=== PATIENT | male | born 1985 | race Caucasian/White ===

== ENCOUNTER 2017-01-05 13:24 | Inpatient (IN) | payer OTHER ==
[2017-01-05] VITALS (9 sets, daily range): BP systolic 92–147; BP diastolic 53–89; PULSE 98–135; RESP 17–27; TEMP 98.3–99.5; O2SAT 88–99
[~2017-01-05] VITALS: Ht 167.6 cm; Wt 99.4 kg
[2017-01-05] MEDS ORDERED: IOHEXOL 350 MG/ML 10 ML VIAL (for RAD DIAG) IVCONTRAST ONE (13:25)
[2017-01-05] MEDS ORDERED: METF500T PO (13:52)
[2017-01-05] MEDS ORDERED: OMEP20TA PO (13:53)
[2017-01-05] MEDS ORDERED: SODIUM CHLOR 0.9% 1000 ML INJ 1,000 ML IV SCH ×2 (13:54→14:43)
--- NOTE | 2017-01-05 13:59 | PD ---
HPI Chief Complaint: Respiratory Distress Time Seen by Provider: 13:50 Travel History International Travel<30 days: No Contact w/Intl Traveler<30days: No Traveled to known affect area: No History of Present Illness HPI This a 31-year-old male smoker who traveled here 1.5 months ago from [place] by plane. He presents via EMS for evaluation. For the past 2 days he has had dyspnea, pain in the right upper back and mid chest, generalized myalgias. The pain in his back and chest are sharp and worse with deep inspiration, no alleviating factors. He does report cough with brown sputum production as well as some numbness in the left thigh area and he also endorses some nausea and one episode of emesis yesterday, 1 today as well as 4 episodes of watery stool yesterday. Denies abdominal pain, dysuria, lower extremity edema. He has a history of diabetes, he has been out of his metformin for 1 week. He has no other complaints at this time. PFSH Past Medical History Diabetes: Yes Social History Tobacco Use: Yes Allergies-Medications (Allergen,Severity, Reaction): Coded Allergies: cephalexin (Verified Allergy, Unknown, 01/05/17) Reported Meds & Prescriptions Reported Meds & Active Scripts Active Reported Omeprazole 20 Mg Tab 20 Mg PO DAILY Metformin (Metformin HCl) 500 Mg Tab 500 Mg PO BIDPC Review of Systems Except as stated in HPI: all other systems reviewed are Neg Physical Exam Narrative GENERAL: Well-developed well-nourished male who appears tachypneic on initial examination. He is tachycardic with a heart rate of 130. SKIN: Warm and dry. HEAD: Atraumatic. Normocephalic. EYES: Pupils equal and round. No scleral icterus. No injection or drainage. ENT: No nasal bleeding or discharge. Mucous membranes pink and moist. NECK: Trachea midline. No JVD. CARDIOVASCULAR: Regular rate and rhythm. No murmur appreciated. RESPIRATORY: No accessory muscle use. Slightly diminished breath sounds, mild crackles at the bases. No wheezing. GASTROINTESTINAL: Abdomen soft, non-tender, nondistended. Hepatic and splenic margins not palpable. MUSCULOSKELETAL: No obvious deformities. There is no lower extremity edema or obvious weakness. He has 2+ dorsalis pedis pulse bilaterally. NEUROLOGICAL: Awake and alert. No obvious cranial nerve deficits. Motor grossly within normal limits. Normal speech. PSYCHIATRIC: Appropriate mood and affect; insight and judgment normal. Data Data Last Documented VS Vital Signs Date Time Temp Pulse Resp B/P (MAP) Pulse Ox O2 Delivery O2 Flow Rate FiO2 01/05/17 14:07 94 Nasal Cannula 2.00 01/05/17 13:55 129 25 01/05/17 13:37 98.3 Orders Orders Complete Blood Count With Diff (01/05/17 13:54) Comprehensive Metabolic Panel (01/05/17 13:54) Act Partial Throm Time (Ptt) (01/05/17 13:54) Prothrombin Time / Inr (Pt) (01/05/17 13:54) Magnesium (Mg) (01/05/17 13:54) Ckmb (Isoenzyme) Profile (01/05/17 13:54) Troponin I (01/05/17 13:54) Influenzae A/B Antigen (01/05/17 13:54) Iv Access Insert/Monitor (01/05/17 13:54) Electrocardiogram (01/05/17 13:54) Ecg Monitoring (01/05/17 13:54) Oximetry (01/05/17 13:54) Oxygen Administration (01/05/17 13:54) Chest, Single Ap (01/05/17 13:54) Ct Pulmonary Angiogram (01/05/17 13:54) Sodium Chlor 0.9% 1000 Ml Inj (Ns 1000 M (01/05/17 13:54) Ondansetron Inj (Zofran Inj) (01/05/17 14:00) B-Type Natriuretic Peptide (01/05/17 14:38) Lactic Acid Sepsis Protocol (01/05/17 14:39) Blood Culture (01/05/17 14:39) Vancomycin Inj (Vancomycin Inj) (01/05/17 14:45) Piperacil-Tazo 4.5 Gm Premix (Zosyn 4.5 (01/05/17 14:45) Sodium Chlor 0.9% 1000 Ml Inj (Ns 1000 M (01/05/17 14:43) Acetaminophen (Tylenol) (01/05/17 15:30) CKMB (01/05/17 14:00) CKMB% (01/05/17 14:00) Iohexol 350 Inj (Omnipaque 350 Inj) (01/05/17 13:25) Ur Drug Screen W/Confirmation (01/05/17 16:51) Admit Order (Ed Use Only) (01/05/17 16:59) Labs Laboratory Tests Test 01/05/17 14:00 01/05/17 14:55 White Blood Count 9.6 TH/MM3 Red Blood Count 5.73 MIL/MM3 Hemoglobin 16.8 GM/DL Hematocrit 47.6 % Mean Corpuscular Volume 83.1 FL Mean Corpuscular Hemoglobin 29.4 PG Mean Corpuscular Hemoglobin Concent 35.3 % Red Cell Distribution Width 14.1 % Platelet Count 202 TH/MM3 Mean Platelet Volume 9.7 FL Neutrophils (%) (Auto) 88.8 % Lymphocytes (%) (Auto) 4.1 % Monocytes (%) (Auto) 6.9 % Eosinophils (%) (Auto) 0.0 % Basophils (%) (Auto) 0.2 % Neutrophils # (Auto) 8.5 TH/MM3 Lymphocytes # (Auto) 0.4 TH/MM3 Monocytes # (Auto) 0.7 TH/MM3 Eosinophils # (Auto) 0.0 TH/MM3 Basophils # (Auto) 0.0 TH/MM3 CBC Comment DIFF FINAL Differential Comment Prothrombin Time 12.0 SEC Prothromb Time International Ratio 1.1 RATIO Activated Partial Thromboplast Time 28.2 SEC Blood Urea Nitrogen 16 MG/DL Creatinine 1.60 MG/DL Random Glucose 125 MG/DL Total Protein 7.5 GM/DL Albumin 3.6 GM/DL Calcium Level 8.4 MG/DL Magnesium Level 1.7 MG/DL Alkaline Phosphatase 67 U/L Aspartate Amino Transf (AST/SGOT) 65 U/L Alanine Aminotransferase (ALT/SGPT) 108 U/L Total Bilirubin 1.0 MG/DL Sodium Level 132 MEQ/L Potassium Level 4.1 MEQ/L Chloride Level 101 MEQ/L Carbon Dioxide Level 19.2 MEQ/L Anion Gap 12 MEQ/L Estimat Glomerular Filtration Rate 50 ML/MIN Total Creatine Kinase 1071 U/L Creatine Kinase MB 25.8 NG/ML Creatine Kinase MB % 2.4 % Troponin I 0.18 NG/ML Lactic Acid Level 2.5 mmol/L B-Type Natriuretic Peptide 47 PG/ML MDM Medical Decision Making Medical Screen Exam Complete: Yes Emergency Medical Condition: Yes Medical Record Reviewed: Yes Interpretation(s) CBC reveals WBC count 9.6, 88.8% neutrophils CMP reveals a sodium of 132, creatinine 1.6, AST 65, ALT 108, calcium 8.4 CTPA CONCLUSION: 1. Diffuse, fluffy alveolar infiltrates most prominent in the lower lobes but there is involvement of the upper lobes as well with relative sparing of the apices. Diagnostic considerations include an unusual, diffuse pneumonic infiltrate versus pneumonitis. No associated effusions. 2. No pulmonary embolus. Differential Diagnosis Pulmonary embolism, septic emboli, pneumonia, asthma exacerbation, spontaneous pneumothorax, pericarditis, myocarditis, influenza Narrative Course The patient will be placed on ECG monitoring and pulse oximetry. Twelve-lead EKG will be obtained. Plan is for basic lab work, chest x-ray, CT pulmonary angiogram. Chest x-ray reveals CONCLUSION: 1. Diffuse patchy bilateral PICA opacities, most prominent in the right upper lung zone. Differential considerations include atypical pulmonary edema versus interstitial pneumonia versus atypical infection. I discussed greater detail with the patient who endorses a history of heroin abuse and he recently relapsed, most recently used yesterday. Denies any known history of multiple diseases. Lactic acid and blood cultures been added on. Additional IV fluids as well as vancomycin, Zosyn have been added on. At this point in time the plan is to admit this patient for further evaluation and treatment of pneumonia. Sepsis Criteria SIRS Criteria (2 or more): Heart rate over 90, RR > 20 or PaCO2 < 32 Sepsis Criteria (SIRS+source): Infect source susp/known Criteria Outcome: Meets sepsis criteria Diagnosis Primary Impression: Pneumonia Qualified Codes: J18.9 - Pneumonia, unspecified organism Additional Impressions: Sepsis Qualified Codes: A41.9 - Sepsis, unspecified organism Elevated troponin Admitting Information Admitting Physician Requests: Admit Gerald Tan Jan 05, 2017 13:59
[2017-01-05] MEDS ORDERED: ONDANSETRON HCL 4 MG/2 ML VIAL IV PUSH ONE (14:00)
--- NOTE | 2017-01-05 14:34 | RADRPT ---
EXAM DATE/TIME: 01/05/2017 14:06 [facility] COMPARISON: No previous studies available for comparison. INDICATIONS : Shortness of breath. MEDICAL HISTORY : None. SURGICAL HISTORY : None. ENCOUNTER: Initial ACUITY: 2 days PAIN SCORE: 10/10 LOCATION: Bilateral posterior chest FINDINGS: Patchy diffuse bilateral parenchymal opacities, most prominently in the right upper lung zone. Cardio mediastinal contours are within normal limits. Bony thorax is intact. CONCLUSION: 1. Diffuse patchy bilateral PICA opacities, most prominent in the right upper lung zone. Differential considerations include atypical pulmonary edema versus interstitial pneumonia versus atypical infect ion. Mook Bell MD on January 05, 2017 at 14:30 Board Certified Radiologist. This report was verified electronically.
[2017-01-05] MEDS ORDERED: VANCOMYCIN INJ 1,000 MG in SODIUM CHLOR 0.9% 250 ML INJ 250 ML IV ONE (14:45)
[2017-01-05] MEDS ORDERED: PIPERACIL-TAZO 4.5 GM PREMIX 100 ML IV ONE (14:45)
[2017-01-05 14:57] LABS: AUTOMATED NEUTROPHIL # 8.5 TH/MM3 (1.8-7.7); BASOPHIL % 0.2 % (0.0-2.0); HEMATOCRIT 47.6 % (39.0-51.0); HEMO FLAGS DIFF FINAL; LYMPH % 4.1 % (9.0-44.0); LYMPHOCYTE # 0.4 TH/MM3 (1.0-4.8); MEAN CELL VOLUME 83.1 FL (80.0-100.0); MEAN CORPUSCULAR HEMOGLOBIN 29.4 PG (27.0-34.0); MEAN CORPUSCULAR HGB CONC 35.3 % (32.0-36.0); MONO % 6.9 % (0.0-8.0); NEUT % 88.8 % (16.0-70.0); PLATELET COUNT 202 TH/MM3 (150-450); RED BLOOD COUNT 5.73 MIL/MM3 (4.50-5.90); RED CELL DISTRIBUTION WIDTH 14.1 % (11.6-17.2); WHITE BLOOD COUNT 9.6 TH/MM3 (4.0-11.0)
[2017-01-05 15:20] LABS: APTT (PATIENT) 28.2 SEC (24.3-30.1); INTERNATIONAL NORMALIZED RATIO 1.1 RATIO
[2017-01-05 15:21] LABS: ALT (GPT) 108 U/L (12-78); ANION GAP 12 MEQ/L (5-15); AST (GOT) 65 U/L (15-37); BICARBONATE 19.2 MEQ/L (21.0-32.0); BLOOD UREA NITROGEN 16 MG/DL (7-18); CHLORIDE 101 MEQ/L (98-107); GLOMERULAR FILTRATION RATE 50 ML/MIN (>89); MAGNESIUM 1.7 MG/DL (1.5-2.5); POTASSIUM 4.1 MEQ/L (3.5-5.1); SODIUM (NA) 132 MEQ/L (136-145)
[2017-01-05] MEDS ORDERED: ACETAMINOPHEN 500 MG CPLT PO ONE (15:30)
[2017-01-05 15:35] LABS: ALKALINE PHOSPHATASE 67 U/L (45-117); CREATINE KINASE 1071 U/L (39-308)
[2017-01-05 15:48] LABS: CKMB 25.8 NG/ML (0.5-3.6)
--- NOTE | 2017-01-05 16:25 | RADRPT ---
EXAM DATE/TIME: 01/05/2017 15:47 This report includes an Addendum and supersedes previous reports for this exam. [facility] COMPARISON: No previous studies available for comparison. INDICATIONS : SOB with productive cough with upper back pain with headache and nausea IV CONTRAST: 74 cc Omnipaque 350 (iohexol) IV RADIATION DOSE: 23.08 CTDIvol (mGy) MEDICAL HISTORY : Diabetes mellitus type 2. SURGICAL HISTORY : Non-responsive. ENCOUNTER: Initial ACUITY: 1 day PAIN SCALE: 7/10 LOCATION: chest TECHNIQUE: Volumetric scanning of the chest was performed using a pulmonary embolism protocol MIP images were re constructed. Using automated exposure control and adjustment of the mA and/or kV according to patien t size, radiation dose was kept as low as reasonably achievable to obtain optimal diagnostic quality images. DICOM format image data is available electronically for review and comparison. Follow-up recommendations for detected pulmonary nodules are based at a minimum on nodule size and pa tient risk factors according to Fleischner Society Guidelines. FINDINGS: PULMONARY ARTERIES: No filling defects are seen in the pulmonary arteries through the segmental level. LUNGS: Fluffy alveolar infiltrates are seen in both lungs, most severe in lower lobes with relative sparing of the apices. PLEURAE: There is no pleural thickening or pleural effusion. MEDIASTINUM: There is good visualization of the great vessels of the middle mediastinum. No evidence of mediastin al or hilar adenopathy/mass. MUSCULOSKELETAL: Within normal limits for patient age. MISCELLANEOUS: The visualized upper abdominal organs demonstrate no acute abnormality. CONCLUSION: 1. Diffuse, fluffy alveolar infiltrates most prominent in the lower lobes but there is involvement of the upper lobes as well with relative sparing of the apices. Diagnostic considerations include an un usual, diffuse pneumonic infiltrate versus pneumonitis. No associated effusions. 2. No pulmonary embolus. Thomas Perez MD on January 05, 2017 at 16:15 Board Certified Radiologist. This report was verified electronically. ADDENDUM: The central lobar distribution of the infiltrate may also represent entities such as pulmonary hemorr puja secondary to vasculitis Thomas Perez MD on January 05, 2017 at 17:52 Board Certified Radiologist. This report was verified electronically.
--- NOTE | 2017-01-05 17:04 | PD ---
Physical Exam Date Seen by Provider: Jan 05, 2017 Time Seen by Provider: 15:00 Narrative I, Dr. Brewster, have reviewed the advance practice practitioner's documentation and am in agreement, met with the patient face to face, made the diagnosis, and the medical decision making was done by me. *My assessment and Findings: Patient seen and evaluated with PA, please see PA note for further details. He is here for pleuritic chest pains and shortness of breath, and on evaluation, is quite tachycardic. Initial chest x-ray shows bilateral infiltrates concerning for either CHF or bilateral pneumonia. CTA was done to rule out PE and did not show any signs of PE. Lab work shows significant lactate elevation, there is concern for underlying sepsis. IV antibiotics were initiated after cultures were drawn. Patient admits to illicit drug use and there is also concern for underlying atypical pneumonia such as once related to endocarditis. HIV status is also unknown. His troponin is mildly elevated as well. Patient has multiple issues that will need to be evaluated further. Case was discussed with [facility] resident [facility] for admission. EKG shows sinus tachycardia at a rate of 126 bpm with no signs of acute ST-T changes. Laboratory Tests Test 01/05/17 14:00 01/05/17 14:55 Neutrophils (%) (Auto) 88.8 % (16.0-70.0) Lymphocytes (%) (Auto) 4.1 % (9.0-44.0) Neutrophils # (Auto) 8.5 TH/MM3 (1.8-7.7) Lymphocytes # (Auto) 0.4 TH/MM3 (1.0-4.8) Prothrombin Time 12.0 SEC (9.8-11.6) Creatinine 1.60 MG/DL (0.60-1.30) Random Glucose 125 MG/DL (74-106) Calcium Level 8.4 MG/DL (8.5-10.1) Aspartate Amino Transf (AST/SGOT) 65 U/L (15-37) Alanine Aminotransferase (ALT/SGPT) 108 U/L (12-78) Sodium Level 132 MEQ/L (136-145) Carbon Dioxide Level 19.2 MEQ/L (21.0-32.0) Estimat Glomerular Filtration Rate 50 ML/MIN (>89) Total Creatine Kinase 1071 U/L (39-308) Creatine Kinase MB 25.8 NG/ML (0.5-3.6) Troponin I 0.18 NG/ML (0.02-0.05) Lactic Acid Level 2.5 mmol/L (0.4-2.0) Last 24 hours Impressions Chest X-Ray 01/05/17 [id number] Signed Impressions: Service Date/Time: Thursday, January 05, 2017 14:06 - CONCLUSION: 1. Diffuse patchy bilateral PICA opacities, most prominent in the right upper lung zone. Differential considerations include atypical pulmonary edema versus interstitial pneumonia versus atypical infection. Mook Bell MD CT Angiography 01/05/[id number] Signed Impressions: Service Date/Time: Thursday, January 05, 2017 15:47 - CONCLUSION: 1. Diffuse , fluffy alveolar infiltrates most prominent in the lower lobes but there is involvement of the upper lobes as well with relative sparing of the apices. Diagnostic considerations include an unusual, diffuse pneumonic infiltrate versus pneumonitis. No associated effusions. 2. No pulmonary embolus. Thomas Perez MD Data Data Last Documented VS Vital Signs Date Time Temp Pulse Resp B/P (MAP) Pulse Ox O2 Delivery O2 Flow Rate FiO2 01/05/17 14:07 94 Nasal Cannula 2.00 01/05/17 13:55 129 25 01/05/17 13:37 98.3 Orders Orders Complete Blood Count With Diff (01/05/17 13:54) Comprehensive Metabolic Panel (01/05/17 13:54) Act Partial Throm Time (Ptt) (01/05/17 13:54) Prothrombin Time / Inr (Pt) (01/05/17 13:54) Magnesium (Mg) (01/05/17 13:54) Ckmb (Isoenzyme) Profile (01/05/17 13:54) Troponin I (01/05/17 13:54) Influenzae A/B Antigen (01/05/17 13:54) Iv Access Insert/Monitor (01/05/17 13:54) Electrocardiogram (01/05/17 13:54) Ecg Monitoring (01/05/17 13:54) Oximetry (01/05/17 13:54) Oxygen Administration (01/05/17 13:54) Chest, Single Ap (01/05/17 13:54) Ct Pulmonary Angiogram (01/05/17 13:54) Sodium Chlor 0.9% 1000 Ml Inj (Ns 1000 M (01/05/17 13:54) Ondansetron Inj (Zofran Inj) (01/05/17 14:00) B-Type Natriuretic Peptide (01/05/17 14:38) Lactic Acid Sepsis Protocol (01/05/17 14:39) Blood Culture (01/05/17 14:39) Vancomycin Inj (Vancomycin Inj) (01/05/17 14:45) Piperacil-Tazo 4.5 Gm Premix (Zosyn 4.5 (01/05/17 14:45) Sodium Chlor 0.9% 1000 Ml Inj (Ns 1000 M (01/05/17 14:43) Acetaminophen (Tylenol) (01/05/17 15:30) CKMB (01/05/17 14:00) CKMB% (01/05/17 14:00) Iohexol 350 Inj (Omnipaque 350 Inj) (01/05/17 13:25) Ur Drug Screen W/Confirmation (01/05/17 16:51) Admit Order (Ed Use Only) (01/05/17 16:59) Labs Laboratory Tests Test 01/05/17 14:00 01/05/17 14:55 White Blood Count 9.6 TH/MM3 Red Blood Count 5.73 MIL/MM3 Hemoglobin 16.8 GM/DL Hematocrit 47.6 % Mean Corpuscular Volume 83.1 FL Mean Corpuscular Hemoglobin 29.4 PG Mean Corpuscular Hemoglobin Concent 35.3 % Red Cell Distribution Width 14.1 % Platelet Count 202 TH/MM3 Mean Platelet Volume 9.7 FL Neutrophils (%) (Auto) 88.8 % Lymphocytes (%) (Auto) 4.1 % Monocytes (%) (Auto) 6.9 % Eosinophils (%) (Auto) 0.0 % Basophils (%) (Auto) 0.2 % Neutrophils # (Auto) 8.5 TH/MM3 Lymphocytes # (Auto) 0.4 TH/MM3 Monocytes # (Auto) 0.7 TH/MM3 Eosinophils # (Auto) 0.0 TH/MM3 Basophils # (Auto) 0.0 TH/MM3 CBC Comment DIFF FINAL Differential Comment Prothrombin Time 12.0 SEC Prothromb Time International Ratio 1.1 RATIO Activated Partial Thromboplast Time 28.2 SEC Blood Urea Nitrogen 16 MG/DL Creatinine 1.60 MG/DL Random Glucose 125 MG/DL Total Protein 7.5 GM/DL Albumin 3.6 GM/DL Calcium Level 8.4 MG/DL Magnesium Level 1.7 MG/DL Alkaline Phosphatase 67 U/L Aspartate Amino Transf (AST/SGOT) 65 U/L Alanine Aminotransferase (ALT/SGPT) 108 U/L Total Bilirubin 1.0 MG/DL Sodium Level 132 MEQ/L Potassium Level 4.1 MEQ/L Chloride Level 101 MEQ/L Carbon Dioxide Level 19.2 MEQ/L Anion Gap 12 MEQ/L Estimat Glomerular Filtration Rate 50 ML/MIN Total Creatine Kinase 1071 U/L Creatine Kinase MB 25.8 NG/ML Creatine Kinase MB % 2.4 % Troponin I 0.18 NG/ML Lactic Acid Level 2.5 mmol/L B-Type Natriuretic Peptide 47 PG/ML [facility] Medical Record Reviewed: Yes Supervised Visit with SHIMON: Yes Diagnosis Primary Impression: Pneumonia Qualified Codes: J18.9 - Pneumonia, unspecified organism Additional Impression: Sepsis Qualified Codes: A41.9 - Sepsis, unspecified organism Admitting Information Admitting Physician Requests: it Steven Brewster MD Jan 05, 2017 17:04
[2017-01-05 17:07] LABS: LACTIC ACID GHOST NOT REPORTABLE
[2017-01-05] MEDS ORDERED: SODIUM CHLORIDE 0.9% FLUSH 10 ML FLUSH IV FLUSH PRN ×4 (17:15→21:30)
--- NOTE | 2017-01-05 17:17 | HHI.HP ---
HPI Service Family Medicine Primary Care Physician No Primary Care Physician Admission Diagnosis sepsis/bilateral pneumonia/elevated troponin Diagnoses: International Travel<30 Days: No Contact w/Intl Traveler<30days: No Known Affected Area: No History of Present Illness Mr. Jones is a 31-year-old male, who presents with right-sided chest pain, shortness of breath, and productive sputum 3 days. Vernon reports gradual onset of right sided chest wall pain over the past several days. The pain is described as a sharp, stabbing pain, that is a 10 out of 10, and radiates to his lower back. Taking a deep breath makes his pain worse. He also reports that over the past 2-3 days he has been having night sweats, fevers, and chills. In addition to the symptoms, he also reports a productive sputum, that is brown colored. He brings up several tablespoons daily. He denies any blood in the sputum. He denies a history of blood clots. He denies currently having any left-sided, or central chest pain. He denies any radiation of the pain into his left arm, jaw, or chest pain associated with exertion. The patient does admit to remodeling a house recently, and has not been able to wear his mask because the mask fogs his glasses. He does not know if he was exposed to anybody with tuberculosis, denies being in a long term/ present/was [facility]. He denies inhaling any foreign drugs, except for marijuana several days ago. To note, he also injected IV cocaine 8 days ago. Review of systems: He also reports left knee numbness, and inability to bear weight on this leg that is new over the past 24 hours. Headaches, frontal temporal, worse with coughing. Nausea + Review of Systems Constitutional: COMPLAINS OF: Fatigue, Fever, Chills Eyes: DENIES: Blurred vision, Diplopia Respiratory: COMPLAINS OF: Cough, Sputum production, Shortness of breath Cardiovascular: COMPLAINS OF: Chest pain, DENIES: Palpitations Gastrointestinal: COMPLAINS OF: Nausea, DENIES: Abdominal pain, Black stools, Bloody stools, Constipation, Diarrhea Musculoskeletal: DENIES: Joint pain Neurologic: COMPLAINS OF: Abnormal gait, Localized weakness, Paresthesias Past Family Social History Past Medical History Diabetes mellitus, on metformin Obesity IV drug abuse Past Surgical History Right knee repair, left flexor tendons in his forearm were repaired, tonsillectomy Allergies: Coded Allergies: cephalexin (Verified Allergy, Unknown, 01/05/17) Family History Mother 50s, healthy Father also healthy Brother healthy 2 children healthy Social History Moved from [place] to help a friend remodel house Smokes a pack per day since the age of 13 Denies any recent alcohol abuse IV cocaine abuse, last use a days ago. +Marijuana Physical Exam Vital Signs Vital Signs Date Time Temp Pulse Resp B/P (MAP) Pulse Ox O2 Delivery O2 Flow Rate FiO2 01/05/17 14:07 94 Nasal Cannula 2.00 01/05/17 14:07 94 Nasal Cannula 2.00 01/05/17 13:55 129 25 93 Nasal Cannula 2.00 01/05/17 13:47 130 25 140/87 (104) 91 01/05/17 13:37 98.3 135 18 131/81 (98) 88 Room Air Physical Exam Gen.: Profusely diaphoretic, alert and oriented 3, speaking in full sentences, appears uncomfortable HEENT: Pinpoint pupils, left pupil deviated medially, pupils are equal round and reactive to light, cranial nerves intact, throat non-erythematous, neck soft / supple CV: RRR, tachycardic, no obvious murmurs, pulses faint to extremities RESP: Right lobes diminished, faint crackles throughout, not using accessory muscles. Left bases, minimal crackles. No deviation of trachea. EXT: Negative Craven sign, calfs equal in diameter, non tender NEURO: AAO x 3; CN intact, left pupil deviated midline from , full strength throughout, Reflexes diminished to left patellar, numbness to light palpation over left anterior thigh and rosa. Laboratory Laboratory Tests Test 01/05/17 14:00 01/05/17 14:55 White Blood Count 9.6 Red Blood Count 5.73 Hemoglobin 16.8 Hematocrit 47.6 Mean Corpuscular Volume 83.1 Mean Corpuscular Hemoglobin 29.4 Mean Corpuscular Hemoglobin Concent 35.3 Red Cell Distribution Width 14.1 Platelet Count 202 Mean Platelet Volume 9.7 Neutrophils (%) (Auto) 88.8 Lymphocytes (%) (Auto) 4.1 Monocytes (%) (Auto) 6.9 Eosinophils (%) (Auto) 0.0 Basophils (%) (Auto) 0.2 Neutrophils # (Auto) 8.5 Lymphocytes # (Auto) 0.4 Monocytes # (Auto) 0.7 Eosinophils # (Auto) 0.0 Basophils # (Auto) 0.0 CBC Comment DIFF FINAL Differential Comment Prothrombin Time 12.0 Prothromb Time International Ratio 1.1 Activated Partial Thromboplast Time 28.2 Blood Urea Nitrogen 16 Creatinine 1.60 Random Glucose 125 Total Protein 7.5 Albumin 3.6 Calcium Level 8.4 Magnesium Level 1.7 Alkaline Phosphatase 67 Aspartate Amino Transf (AST/SGOT) 65 Alanine Aminotransferase (ALT/SGPT) 108 Total Bilirubin 1.0 Sodium Level 132 Potassium Level 4.1 Chloride Level 101 Carbon Dioxide Level 19.2 Anion Gap 12 Estimat Glomerular Filtration Rate 50 Total Creatine Kinase 1071 Creatine Kinase MB 25.8 Creatine Kinase MB % 2.4 Troponin I 0.18 Lactic Acid Level 2.5 B-Type Natriuretic Peptide 47 Date/Time Source Procedure Growth Status 01/05/17 14:55 Blood Peripheral Aerobic Blood Culture Pending Received 01/05/17 14:55 Blood Peripheral Anaerobic Blood Culture Pending Received 01/05/17 14:00 Nasal Aspirate Influenza Types A,B Antigen (LEAH) - Final NEGATIVE FOR FLU A AND B ANTIGEN.... Complete Result Diagram: 01/05/17 1400 01/05/17 1400 Imaging Last 72 hours Impressions Chest X-Ray 01/05/17 1352 Signed Impressions: Service Date/Time: Thursday, January 05, 2017 14:06 - CONCLUSION: 1. Diffuse patchy bilateral PICA opacities, most prominent in the right upper lung zone. Differential considerations include atypical pulmonary edema versus interstitial pneumonia versus atypical infection. Mook Bell MD CT Angiography 01/05/17 4012 Signed Impressions: Service Date/Time: Thursday, January 05, 2017 15:47 - CONCLUSION: 1. Diffuse , fluffy alveolar infiltrates most prominent in the lower lobes but there is involvement of the upper lobes as well with relative sparing of the apices. Diagnostic considerations include an unusual, diffuse pneumonic infiltrate versus pneumonitis. No associated effusions. 2. No pulmonary embolus. Thomas Perez MD ADDENDUM: The central lobar distribution of the infiltrate may also represent entities such as pulmonary hemorrhage secondary to vasculitis Thomas Perez MD Septic Shock Reassessment Heart: Regular rate and rhythm Lungs: Course, Crackles, Diminished Skin: Cold, Moist Peripheral Pulses: Weak Right Radial Weak Left Radial Capillary Refill: Sluggish, <2 seconds Caprini VTE Risk Assessment Caprini VTE Risk Assessment: Mod/High Risk (score >= 2) Caprini Risk Assessment Model Point Value = 1 Point Value = 2 Point Value = 3 Point Value = 5 Age 41-60 Minor surgery BMI > 25 kg/m2 Swollen legs Varicose veins or History of unexplained or recurrent spontaneous Oral contraceptives or hormone replacement Sepsis (< 1 month) Serious lung disease, including pneumonia (< 1 month) Abnormal pulmonary function Acute myocardial infarction Congestive heart failure (< 1 month) History of inflammatory bowel disease Medical patient at bed rest Age 61-74 Arthroscopic surgery Major open surgery (> 45 min) Laparoscopic surgery (> 45 min) Malignancy Confined to bed (> 72 hours) Immobilizing plaster cast Central venous access Age >= 75 History of VTE Family history of VTE Factor V Leiden Prothrombin [id number] Lupus anticoagulant Anticardiolipin antibodies Elevated serum homocysteine Heparin-induced thrombocytopenia Other congenital or acquired thrombophilia Stroke (< 1 month) Elective arthroplasty Hip, pelvis, or leg fracture Acute spinal cord injury (< 1 month) Prophylaxis Regimen Total Risk Factor Score Risk Level Prophylaxis Regimen 0-1 Low Early ambulation 2 Moderate Order ONE of the following: *Sequential Compression Device (SCD) *Heparin 5000 units SQ BID 3-4 Higher Order ONE of the following medications: *Heparin 5000 units SQ TID *Enoxaparin/Lovenox 40 mg SQ daily (WT < 150 kg, CrCl > 30 mL/min) *Enoxaparin/Lovenox 30 mg SQ daily (WT < 150 kg, CrCl > 10-29 mL/min) *Enoxaparin/Lovenox 30 mg SQ BID (WT < 150 kg, CrCl > 30 mL/min) AND/OR *Sequential Compression Device (SCD) 5 or more Highest Order ONE of the following medications: *Heparin 5000 units SQ TID (Preferred with Epidurals) *Enoxaparin/Lovenox 40 mg SQ daily (WT < 150 kg, CrCl > 30 mL/min) *Enoxaparin/Lovenox 30 mg SQ daily (WT < 150 kg, CrCl > 10-29 mL/min) *Enoxaparin/Lovenox 30 mg SQ BID (WT < 150 kg, CrCl > 30 mL/min) AND *Sequential Compression Device (SCD) Assessment and Plan Assessment and Plan Mr. Jones is a 31-year-old male, with past medical history of diabetes, presenting with worsening shortness of breath and right-sided chest pain. CTA of chest showed diffuse fluffy alveolar infiltrates most prominent at the lower lobes. He is meeting sepsis criteria on admission. He will be admitted to the intensive care unit. Code Status Full code. Discussed Condition With Seen and discussed with Dr. Selena Moffett Problem List: (1) Sepsis ICD Codes: A41.9 - Sepsis, unspecified organism Status: Acute Plan: Severe sepsis. Heart rate 135, RR 25, lactic acid 2.5. Decreasing BP from 137/89 to 92/53 since admission. Source: Possible bacteremia, endocarditis, atypical pneumonia, pneumonitis. Clinical picture consistent with Legionella: patchy lobar infiltrates, hyponatremia, hepatic dysfunction, headaches, and diarrhea. Plan: -Status post 2 L bolus in ED, continue fluids at 1.5 maintenance NS, may need central line and pressors if continuing to have hypotension. -Broad-spectrum antibiotics: Vancomycin 1 g every 12, Zosyn 4.5 g every 6, azithromycin 500 mg by mouth -Blood cultures 2 -Trend lactic acid -Consult infectious disease. We appreciate their expertise. (2) Elevated troponin ICD Codes: R74.8 - Abnormal levels of other serum enzymes Status: Acute Plan: Troponin on admission was 0.18 --> 0.30. Increasing. EKG showed normal sinus rhythm on admission, with no ST segment elevations or depressions. No Q waves. And no T-wave inversions. Suspect demand ischemia from underlying sepsis. If Troponin continue to increase, or there are signs of ischemia on EKG, will consult cardiology and treat for ACS. (3) Pneumonia ICD Codes: J18.9 - Pneumonia, unspecified organism Status: Acute Plan: CTA showed diffuse fluffy alveolar infiltrates most prominent in the lower lobes but there is involvement of the upper lobes as well with relative sparing of the apices. Diagnostic considerations include an unusual type use pneumonic infiltrate versus pneumonitis. No associated effusions. No pulmonary embolism noted on CTA. An addendum to the CT angiography showed: "The central lobar distribution of the infiltrate may also represent entity such as pulmonary hemorrhage secondary to vasculitis." -ABX as above -Supportive therapy with supplemental oxygen O2 sats > 90% -Duonebs Q6 hours scheduled -Urine legionella and pneumococcal Ag PCRs. -Consult pulmonology given the possibility of an alveolar hemorrhage as noted on CT. (4) Lactic acidosis ICD Codes: E87.2 - Acidosis Plan: Lactic acid decreased from 2.5 --> 2.2. Continue to trend per sepsis protocol. (5) Leg numbness ICD Codes: R20.0 - Anesthesia of skin Plan: May be central in origin given headaches worse with Valsalva and possible embolic source. Get CT scan head when stable. (6) IVDU (intravenous drug user) ICD Codes: F19.90 - Other psychoactive substance use, unspecified, uncomplicated Plan: CIWA protocol. Work up for endocarditis as above. 2D-ECHO. Blood cultures x 2. HIV and Hepatitis profile. Sputum for AFB. (7) Nutrition, metabolism, and development symptoms ICD Codes: R63.8 - Other symptoms and signs concerning food and fluid intake Plan: Nutrition: reg diet IVF: above DVT ppx: 30 lovenox daily GI ppx: [address] Selena Mfofett WDW Dr. Miranda Perez and Dr. Jerrica Purcell Physician Certification 2 Midnight Certification Type: Admission for Inpatient Services Order for Inpatient Services The services are ordered in accordance with Medicare regulations or non- Medicare payer requirements, as applicable. In the case of services not specified as inpatient-only, they are appropriately provided as inpatient services in accordance with the 2-midnight benchmark. Estimated LOS (days): 2 2 days is the estimated time the patient will need to remain in the hospital, assuming treatment plan goals are met and no additional complications. Post-Hospital Plan: Home Problem Qualifiers (1) Sepsis: Qualified Codes: A41.9 - Sepsis, unspecified organism (2) Pneumonia: Qualified Codes: J18.9 - Pneumonia, unspecified organism Cameron Ruby MD, R3 Jan 05, 2017 17:17
[2017-01-05] MEDS ORDERED: LACTULOSE SYRUP 20 GM/30 ML CUP PO PRN (17:45)
[2017-01-05] MEDS ORDERED: cloNIDine HCL 0.1 MG TAB PO PRN (17:45)
[2017-01-05] MEDS ORDERED: MAGNESIUM HYDROXIDE SUSP 30 ML CUP PO PRN (17:45)
[2017-01-05] MEDS ORDERED: NALOXONE HCL 0.4 MG/ML AMP IV PUSH PRN (17:45)
[2017-01-05] MEDS ORDERED: ONDANSETRON HCL 4 MG/2 ML VIAL IVP PRN (17:45)
[2017-01-05] MEDS ORDERED: SENNOSIDES 8.6 MG TAB PO PRN (17:45)
[2017-01-05] MEDS ORDERED: BISACODYL 10 MG SUPP RECTAL PRN (17:45)
[2017-01-05] MEDS ORDERED: MORPHINE SULFATE 4 MG/ML INJ IM ONE (18:00)
[2017-01-05] MEDS ORDERED: oxyCODONE/ACETAMINOPHEN 10 MG/325 MG TAB PO PRN (18:15)
[2017-01-05] MEDS ORDERED: MORPHINE SULFATE 2 MG/ML INJ SQ PRN (18:15)
[2017-01-05 18:28] LABS: BACTERIA, URINE OCC /hpf; BLOOD, URINE MOD (NEG); COMMENT (UR) CULT NOT INDICATED; CULTURE IF INDICATED CULT NOT INDICATED; GLUCOSE,URINE NEG (NEG); HYALINE CAST, URINE 4 /lpf (RARE); KETONE, URINE NEG (NEG); NITRITE,URINE NEG (NEG); PH, URINE 5.5 (5.0-8.5); SQUAMOUS EPITHELIAL CELL URINE 1 /hpf (0-5); URINE COLOR YELLOW (YELLW/STRAW)
[2017-01-05] MEDS: MORPHINE SULFATE 2 MG/ML INJ IV PRN (19:12)
[2017-01-05] MEDS ORDERED: ENOXAPARIN SODIUM 30 MG/0.3 ML SYRINGE SQ SCH (20:00)
[2017-01-05] MEDS ORDERED: CHLORHEXIDINE GLUCONATE 2 % 1 PACK (2 CLOTHS)(extra cloths) TOPICAL PRN (20:45)
[2017-01-05] MEDS ORDERED: SODIUM CHLORIDE 0.9% FLUSH 10 ML FLUSH IV FLUSH SCH ×3 (21:00)
[2017-01-05] MEDS: DOCUSATE SODIUM 50 MG/SENNA 8.6 MG TAB PO SCH (21:00)
[2017-01-05] MEDS ORDERED: LORazepam 2 MG/ML VIAL IV PUSH PRN ×4 (21:30)
[2017-01-05] MEDS ORDERED: FLUMAZENIL 0.5 MG/5 ML VIAL IV PUSH PRN (21:30)
[2017-01-05] MEDS ORDERED: LORazepam 2 MG TAB PO PRN (21:30)
[2017-01-05] MEDS ORDERED: LORazepam 1 MG TAB PO PRN (21:30)
[2017-01-05] MEDS: SODIUM CHLOR 0.9% 1000 ML INJ 1,000 ML IV SCH (21:51)
[2017-01-05] MEDS: AZITHROMYCIN 250 MG TAB PO SCH (21:51)
[2017-01-05] MEDS: PIPERACIL-TAZO 4.5 GM PREMIX 100 ML IV SCH (21:53)
[2017-01-05] MEDS: PANTOPRAZOLE SOD 40 MG DELAYED RELEASE TAB PO SCH (21:54)
[2017-01-05] MEDS: RESP: ALBUTEROL 2.5 MG/IPRATROPIUM 0.5 MG NEB (SCH) NEB (22:14)
[2017-01-06] VITALS (12 sets, daily range): BP systolic 101–136; BP diastolic 54–81; PULSE 85–98; RESP 20–30; TEMP 98.7–99.6; O2SAT 93–99
[2017-01-06] MEDS: SODIUM CHLOR 0.9% 1000 ML INJ 1,000 ML IV SCH ×3 (03:17→22:40)
[2017-01-06] MEDS: CHLORHEXIDINE GLUCONATE 2 % 1 PACK (2 CLOTHS)(taper/protocol) TOPICAL SCH (03:18)
[2017-01-06] MEDS: VANCOMYCIN INJ 1,000 MG in SODIUM CHLOR 0.9% 250 ML INJ 250 ML IV SCH ×2 (03:18→15:16)
[2017-01-06] MEDS: RESP: ALBUTEROL 2.5 MG/IPRATROPIUM 0.5 MG NEB (SCH) NEB ×4 (04:21→21:00)
[2017-01-06] MEDS: PIPERACIL-TAZO 4.5 GM PREMIX 100 ML IV SCH ×4 (04:33→22:41)
[2017-01-06] MEDS ORDERED: INFLUENZA VIRUS VACCINE (QUADRIVALENT) 0.5 ML SYR IM ONE (09:00)
[2017-01-06] MEDS ORDERED: PNEUMOCOCCAL POLYVALENT INJ 25 MCG/0.5 ML SYR IM ONE (09:00)
[2017-01-06] MEDS: DOCUSATE SODIUM 50 MG/SENNA 8.6 MG TAB PO SCH ×3 (09:22→20:24)
[2017-01-06] MEDS: PANTOPRAZOLE SOD 40 MG DELAYED RELEASE TAB PO SCH (09:22)
[2017-01-06] MEDS: MORPHINE SULFATE 2 MG/ML INJ IV PRN ×3 (09:22→20:26)
[2017-01-06] MEDS: SODIUM CHLORIDE 0.9% FLUSH 10 ML FLUSH IV FLUSH SCH ×2 (09:23→20:24)
[2017-01-06 09:50] LABS: AUTOMATED NEUTROPHIL # 2.8 TH/MM3 (1.8-7.7); BASOPHIL % 0.1 % (0.0-2.0); EOSINOPHIL % 0.3 % (0.0-4.0); HEMATOCRIT 34.8 % (39.0-51.0); HEMO FLAGS DIFF FINAL; LYMPH % 19.4 % (9.0-44.0); LYMPHOCYTE # 0.8 TH/MM3 (1.0-4.8); MEAN CORPUSCULAR HGB CONC 34.9 % (32.0-36.0); MONO % 10.1 % (0.0-8.0); NEUT % 70.1 % (16.0-70.0); PLATELET COUNT 121 TH/MM3 (150-450); RED BLOOD COUNT 4.19 MIL/MM3 (4.50-5.90); RED CELL DISTRIBUTION WIDTH 14.4 % (11.6-17.2)
[2017-01-06 10:23] LABS: ALKALINE PHOSPHATASE 40 U/L (45-117); ALT (GPT) 76 U/L (12-78); ANION GAP 7 MEQ/L (5-15); AST (GOT) 45 U/L (15-37); BICARBONATE 22.3 MEQ/L (21.0-32.0); BLOOD UREA NITROGEN 9 MG/DL (7-18); CHLORIDE 111 MEQ/L (98-107); GLOMERULAR FILTRATION RATE 94 ML/MIN (>89); POTASSIUM 3.6 MEQ/L (3.5-5.1); SODIUM (NA) 140 MEQ/L (136-145); TOTAL BILIRUBIN ADULT 0.6 MG/DL (0.2-1.0)
[2017-01-06] MEDS: oxyCODONE/ACETAMINOPHEN 7.5 MG/325 MG TAB PO SCH ×3 (11:00→22:41)
--- NOTE | 2017-01-06 11:43 | ECHRPT ---
Indication: endocarditis CONCLUSIONS Normal left ventricular size. Wall thickness is normal. The left ventricular systolic function is normal with an estimated ejection fraction in the range of 55-60%. Structurally normal mitral valve. Mild mitral valve regurgitation. Structurally normal tricuspid valve. There is mild tricuspid valve regurgitation. The estimated pulmonary arterial pressure is 40 mmHg. BP: / HR: Rhythm: MEASUREMENTS (Male / Female) Normal Values Technical Quality:Good 2D ECHO LV Diastolic Diameter PLAX 3.8 cm 4.2 - 5.9 / 3.9 - 5.3 cm LV Systolic Diameter PLAX 3.3 cm IVS Diastolic Thickness 0.9 cm 0.6 - 1.0 / 0.6 - 0.9 cm LVPW Diastolic Thickness 0.9 cm 0.6 - 1.0 / 0.6 - 0.9 cm LV Relative Wall Thickness 0.5 RV Internal Dim ED PLAX 2.8 cm M-MODE Aortic Root Diameter MM 2.8 cm LA Systolic Diameter MM 3.4 cm LA Ao Ratio MM 1.2 AV Cusp Separation MM 2.1 cm DOPPLER Mitral E Point Velocity 61.2 cm/s Mitral A Point Velocity 71.1 cm/s Mitral E to A Ratio 0.9 LV E' Lateral Velocity 18.8 cm/s Mitral E to LV E' Lateral Ratio 3.3 LV E' Septal Velocity 11.6 cm/s Mitral E to LV E' Septal Ratio 5.3 TR Peak Velocity 277.0 cm/s TR Peak Gradient 30.7 mmHg Right Atrial Pressure 10.0 mmHg Pulmonary Artery Systolic Pressu 40.7 mmHg Right Ventricular Systolic Press 40.7 mmHg FINDINGS LEFT VENTRICLE Normal left ventricular size. Wall thickness is normal. The left ventricular systolic function is normal with an estimated ejection fraction in the range of 55-60%. RIGHT VENTRICLE Normal right ventricular size and systolic function. LEFT ATRIUM The left atrial size is normal. RIGHT ATRIUM The right atrial size is normal. ATRIAL SEPTUM Normal atrial septal thickness without atrial level shunting by limited color doppler interrogation. AORTA The aortic root and proximal ascending aorta are normal in size on limited imaging. MITRAL VALVE Structurally normal mitral valve. Mild mitral valve regurgitation. AORTIC VALVE Trileaflet aortic valve. No aortic valve regurgitation. TRICUSPID VALVE Structurally normal tricuspid valve. There is mild tricuspid valve regurgitation. The estimated pulmonary arterial pressure is 40 mmHg. PULMONARY VALVE No pulmonary valve regurgitation or stenosis. VESSELS The inferior vena cava is normal in size. PERICARDIUM No pericardial effusion. Jhoan H. Eva MD (Electronically Signed) Final Date:06 January 2017 11:42
[2017-01-06] MEDS: oxyCODONE/ACETAMINOPHEN 10 MG/325 MG TAB PO PRN (11:53)
--- NOTE | 2017-01-06 13:38 | HHI.FPPN ---
Subjective Remarks Patient seen, examined and discussed with the medicine A team. History and physical examination for this admission was reviewed in detail. This is a 31-year-old male who presented with right sided chest pain associated with shortness of breath and sputum production dark brown sputum for 3 days. He said several days of right sided posterior chest wall pain which is sharp and stabbing, 10 out of 10 and radiates to his low back. He has pain with deep breath, is producing brown sputum of quantity likely several tablespoons per day. No blood seen in the sputum. He has been working remodeling a house and there is a lot of dust involved and he's not been wearing a mask. He denies any exposure to TB. Historically, he is from [place], he has diabetes and obesity, he smokes marijuana occasionally and does use IV cocaine. He is on metformin twice a day , he is a smoker. Surgically he has history of right knee surgery. Additionally, he reports that he arose in his left leg collapsed. He also reports occasional loose stools and headaches. This morning, he feels about the same with pain in his right back posteriorly 10 out of 10. He was able to eat his breakfast but he feels a little nauseated. Still feels feverish. Per his nurse, his vital signs up in stable. Objective Vitals Vital Signs Date Time Temp Pulse Resp B/P (MAP) Pulse Ox O2 Delivery O2 Flow Rate FiO2 01/06/17 10:00 92 01/06/17 08:00 99.3 87 22 110/61 (77) 99 01/06/17 08:00 87 01/06/17 06:00 94 01/06/17 04:00 99.6 92 21 105/68 (80) 99 01/06/17 04:00 96 01/06/17 02:00 86 01/06/17 00:00 96 01/06/17 00:00 99.5 97 21 101/55 (70) 93 01/05/17 22:00 99 01/05/17 20:30 99.5 102 27 107/61 (76) 99 01/05/17 20:09 01/05/17 19:37 98 17 92/53 (66) 99 Room Air 01/05/17 17:30 106 24 147/64 (91) 97 Nasal Cannula 2.00 01/05/17 16:00 110 25 134/83 (100) 96 Nasal Cannula 2.00 01/05/17 14:30 112 24 137/89 (105) 96 Nasal Cannula 2.00 01/05/17 14:07 94 Nasal Cannula 2.00 01/05/17 14:07 94 Nasal Cannula 2.00 01/05/17 13:55 129 25 93 Nasal Cannula 2.00 01/05/17 13:47 130 25 140/87 (104) 91 01/05/17 13:37 98.3 135 18 131/81 (98) 88 Room Air I/O 01/05/17 01/05/17 01/05/17 01/06/17 01/06/17 01/06/17 07:00 15:00 23:00 07:00 15:00 23:00 Intake Total 2350 ml 480 ml Output Total 1150 ml Balance 2350 ml -670 ml Intake Oral 480 ml IV Total 2350 ml Output Urine Total 1150 ml # Bowel Movements 0 Result Diagram: 01/06/1728 01/06/17927 Other Results His lactate is 2.5, pro calcitonin is elevated at 12 as are his AST and ALT. Laboratory Tests Test 01/05/17 14:00 01/05/17 14:55 01/05/17 17:25 01/05/17 18:20 White Blood Count 9.6 TH/MM3 Red Blood Count 5.73 MIL/MM3 Hemoglobin 16.8 GM/DL Hematocrit 47.6 % Mean Corpuscular Volume 83.1 FL Mean Corpuscular Hemoglobin 29.4 PG Mean Corpuscular Hemoglobin Concent 35.3 % Red Cell Distribution Width 14.1 % Platelet Count 202 TH/MM3 Mean Platelet Volume 9.7 FL Neutrophils (%) (Auto) 88.8 % Lymphocytes (%) (Auto) 4.1 % Monocytes (%) (Auto) 6.9 % Eosinophils (%) (Auto) 0.0 % Basophils (%) (Auto) 0.2 % Neutrophils # (Auto) 8.5 TH/MM3 Lymphocytes # (Auto) 0.4 TH/MM3 Monocytes # (Auto) 0.7 TH/MM3 Eosinophils # (Auto) 0.0 TH/MM3 Basophils # (Auto) 0.0 TH/MM3 CBC Comment DIFF FINAL Differential Comment Prothrombin Time 12.0 SEC Prothromb Time International Ratio 1.1 RATIO Activated Partial Thromboplast Time 28.2 SEC Blood Urea Nitrogen 16 MG/DL Creatinine 1.60 MG/DL Random Glucose 125 MG/DL Total Protein 7.5 GM/DL Albumin 3.6 GM/DL Calcium Level 8.4 MG/DL Magnesium Level 1.7 MG/DL Alkaline Phosphatase 67 U/L Aspartate Amino Transf (AST/SGOT) 65 U/L Alanine Aminotransferase (ALT/SGPT) 108 U/L Total Bilirubin 1.0 MG/DL Sodium Level 132 MEQ/L Potassium Level 4.1 MEQ/L Chloride Level 101 MEQ/L Carbon Dioxide Level 19.2 MEQ/L Anion Gap 12 MEQ/L Estimat Glomerular Filtration Rate 50 ML/MIN Total Creatine Kinase 1071 U/L Creatine Kinase MB 25.8 NG/ML Creatine Kinase MB % 2.4 % Troponin I 0.18 NG/ML 0.30 NG/ML Lactic Acid Level 2.5 mmol/L 2.2 mmol/L B-Type Natriuretic Peptide 47 PG/ML Urine Color YELLOW Urine Turbidity CLEAR Urine pH 5.5 Urine Specific [place] 1.043 Urine Protein 30 mg/dL Urine Glucose (UA) NEG mg/dL Urine Ketones NEG mg/dL Urine Occult Blood MOD Urine Nitrite NEG Urine Bilirubin NEG Urine Urobilinogen LESS THAN 2.0 MG/DL Urine Leukocyte Esterase NEG Urine RBC 9 /hpf Urine WBC 7 /hpf Urine Squamous Epithelial Cells 1 /hpf Urine Bacteria OCC /hpf Urine Hyaline Casts 4 /lpf Microscopic Urinalysis Comment CULT NOT INDICATED Test 01/05/17 20:35 01/05/17 22:13 01/05/17 22:30 01/06/17 09:28 Nasal Screen MRSA (PCR) MRSA NOT DETECTED Urine Opiates Screen NEG Urine Barbiturates Screen NEG Urine Amphetamines Screen NEG Urine Benzodiazepines Screen NEG Urine Cocaine Screen POS Urine Cannabinoids Screen NEG Troponin I 0.24 NG/ML 0.16 NG/ML Procalcitonin 12.16 ng/mL White Blood Count 4.0 TH/MM3 Red Blood Count 4.19 MIL/MM3 Hemoglobin 12.1 GM/DL Hematocrit 34.8 % Mean Corpuscular Volume 83.0 FL Mean Corpuscular Hemoglobin 29.0 PG Mean Corpuscular Hemoglobin Concent 34.9 % Red Cell Distribution Width 14.4 % Platelet Count 121 TH/MM3 Mean Platelet Volume 9.6 FL Neutrophils (%) (Auto) 70.1 % Lymphocytes (%) (Auto) 19.4 % Monocytes (%) (Auto) 10.1 % Eosinophils (%) (Auto) 0.3 % Basophils (%) (Auto) 0.1 % Neutrophils # (Auto) 2.8 TH/MM3 Lymphocytes # (Auto) 0.8 TH/MM3 Monocytes # (Auto) 0.4 TH/MM3 Eosinophils # (Auto) 0.0 TH/MM3 Basophils # (Auto) 0.0 TH/MM3 CBC Comment DIFF FINAL Differential Comment Blood Urea Nitrogen 9 MG/DL Creatinine 0.93 MG/DL Random Glucose 115 MG/DL Total Protein 5.8 GM/DL Albumin 2.6 GM/DL Calcium Level 8.4 MG/DL Alkaline Phosphatase 40 U/L Aspartate Amino Transf (AST/SGOT) 45 U/L Alanine Aminotransferase (ALT/SGPT) 76 U/L Total Bilirubin 0.6 MG/DL Sodium Level 140 MEQ/L Potassium Level 3.6 MEQ/L Chloride Level 111 MEQ/L Carbon Dioxide Level 22.3 MEQ/L Anion Gap 7 MEQ/L Estimat Glomerular Filtration Rate 94 ML/MIN Lipase 42 U/L Hepatitis A IgM Antibody NEGATIVE Hepatitis B Surface Antigen NEGATIVE Hepatitis B Core IgM Antibody NEGATIVE Hepatitis C Antibody REACTIVE HIV (1&2) Antibody NEGATIVE Imaging Last 24 hours Impressions Chest X-Ray 01/05/17 [id number] Signed Impressions: Service Date/Time: Thursday, January 05, 2017 14:06 - CONCLUSION: 1. Diffuse patchy bilateral PICA opacities, most prominent in the right upper lung zone. Differential considerations include atypical pulmonary edema versus interstitial pneumonia versus atypical infection. Mook Bell MD CT Angiography 01/05/17 [id number] Signed Impressions: Service Date/Time: Thursday, January 05, 2017 15:47 - CONCLUSION: 1. Diffuse , fluffy alveolar infiltrates most prominent in the lower lobes but there is involvement of the upper lobes as well with relative sparing of the apices. Diagnostic considerations include an unusual, diffuse pneumonic infiltrate versus pneumonitis. No associated effusions. 2. No pulmonary embolus. Thomas Perez MD ADDENDUM: The central lobar distribution of the infiltrate may also represent entities such as pulmonary hemorrhage secondary to vasculitis Thomas Perez MD Objective Remarks Is alert, uncomfortable with movement. Has some difficulty sitting forward in the bed due to pain. Skin is warm and dry Conjunctiva and sclerae are clear Neck is supple Heart regular rate and rhythm Lungs reveal decreased breath sounds particularly the right mid lung and base. Poor lung excursion. Protuberant abdomen, active bowel sounds, nontender to palpation Extremities good pulses, no cyanosis, clubbing or edema. No splinter hemorrhages. A/P Assessment and Plan Mr. Jones is a 31-year-old male, with past medical history of diabetes, presenting with worsening shortness of breath and right-sided chest pain. CTA of chest showed diffuse fluffy alveolar infiltrates most prominent at the lower lobes. He is meeting sepsis criteria on admission. He will be admitted to the intensive care unit. Discharge Planning Hopefully transfer from the intensive care unit soon. Attending Attestation Patient seen and examined. Case reviewed and discussed with the resident team. Agree with plan of care as discussed with me and documented in the resident note. Problem List: (1) Sepsis ICD Codes: A41.9 - Sepsis, unspecified organism Status: Acute Plan: Severe sepsis on admission. Heart rate 135, RR 25, lactic acid 2.5. Decreasing BP from 137/89 to 92/53 since admission. Vital signs have stabilized this morning. Source: Possible bacteremia, endocarditis, atypical pneumonia, pneumonitis. Clinical picture consistent with Legionella: patchy lobar infiltrates, hyponatremia, hepatic dysfunction, headaches, and diarrhea. Plan: -Status post 2 L bolus in ED, continue fluids at 1.5 maintenance NS, now unlikely to need central line and pressors as hypotension has normalized -Broad-spectrum antibiotics: Vancomycin 1 g every 12, Zosyn 4.5 g every 6, azithromycin 500 mg by mouth -Blood cultures 2 -Trend lactic acid -Consult infectious disease. We appreciate their expertise. (2) Elevated troponin ICD Codes: R74.8 - Abnormal levels of other serum enzymes Status: Acute Plan: Troponin on admission was 0.18 --> 0.30. -->0.24 -->0.16 EKG showed normal sinus rhythm on admission, with no ST segment elevations or depressions. No Q waves. And no T-wave inversions. Suspect demand ischemia from underlying sepsis. If Troponin increases or there are signs of ischemia on EKG, will consult cardiology and treat for ACS. (3) Pneumonia ICD Codes: J18.9 - Pneumonia, unspecified organism Status: Acute Plan: CTA showed diffuse fluffy alveolar infiltrates most prominent in the lower lobes but there is involvement of the upper lobes as well with relative sparing of the apices. Diagnostic considerations include an unusual type use pneumonic infiltrate versus pneumonitis. No associated effusions. No pulmonary embolism noted on CTA. An addendum to the CT angiography showed: "The central lobar distribution of the infiltrate may also represent entity such as pulmonary hemorrhage secondary to vasculitis." -ABX as above -Supportive therapy with supplemental oxygen O2 sats > 90% -Duonebs Q6 hours scheduled -Urine legionella and pneumococcal Ag PCRs. -Consult pulmonology given the possibility of an alveolar hemorrhage as noted on CT. (4) Lactic acidosis ICD Codes: E87.2 - Acidosis Plan: Lactic acid decreased from 2.5 --> 2.2. Continue to trend per sepsis protocol. (5) Leg numbness ICD Codes: R20.0 - Anesthesia of skin Plan: May be central in origin given headaches worse with Valsalva and possible embolic source. Get CT scan head when stable. (6) IVDU (intravenous drug user) ICD Codes: F19.90 - Other psychoactive substance use, unspecified, uncomplicated Plan: CIWA protocol. Work up for endocarditis as above. 2D-ECHO. Blood cultures x 2. HIV and Hepatitis profile. Sputum for AFB. UDS positive for cocaine (7) Nutrition, metabolism, and development symptoms ICD Codes: R63.8 - Other symptoms and signs concerning food and fluid intake Plan: Nutrition: reg diet IVF: above DVT ppx: 30 lovenox daily GI ppx: [address] Selena Moffett WDW Dr. Miranda Perez and Dr. Jerrica Purcell (8) Type 2 diabetes mellitus ICD Codes: E11.9 - Type 2 diabetes mellitus without complications Status: Chronic Plan: Patient on metformin as outpatient, will continue to monitor glucose and will hold metformin at this time. Problem Qualifiers (1) Sepsis: Qualified Codes: A41.9 - Sepsis, unspecified organism (2) Pneumonia: Qualified Codes: J18.9 - Pneumonia, unspecified organism Miranda Perez MD Jan 06, 2017 13:38
--- NOTE | 2017-01-06 14:52 | EKG ---
Date Performed: 01/05/2017 Time Performed: 14:20:24 PTAGE: 31 years EKG: SINUS TACHYCARDIA ABNORMAL RHYTHM ECG NO PREVIOUS TRACING DOCTOR: Catherine Starkey Interpretating Date/Time 01/06/2017 14:46:14
--- NOTE | 2017-01-06 15:04 | EKG ---
Date Performed: 01/06/2017 Time Performed: 04:11:14 PTAGE: 31 years EKG: Sinus rhythm . Normal ECG PREVIOUS TRACING : 01/05/2017 20.52 Compared to prior tracing no significant change DOCTOR: Cornell Gan Interpretating Date/Time 01/06/2017 14:56:58
--- NOTE | 2017-01-06 15:04 | EKG ---
Date Performed: 01/05/2017 Time Performed: 20:52:03 PTAGE: 31 years EKG: Sinus rhythm POSSIBLE RIGHT VENTRICULAR CONDUCTION DELAY BORDERLINE ECG PREVIOUS TRACING : 01/05/2017 14.20 Compared to prior tracing no significant change DOCTOR: Cornell Gan Interpretating Date/Time 01/06/2017 14:56:51
[2017-01-06] MEDS: methylPREDNISolone SOD SUCC 40 MG/1 ML VIAL IV PUSH SCH ×2 (15:16→20:25)
[2017-01-06] MEDS ORDERED: Vancomycin Consult Pharmacy 1 EA OTHER SCH (16:15)
--- NOTE | 2017-01-06 16:54 | PD.ID.CON ---
History of Present Illness Service ID Consult Requested By Dr Ruby Reason for Consult PNA Primary Care Physician No Primary Care Physician Diagnoses: History of Present Illness 31 yo male with obesity and type II diabetes presetned with few days of pleuritic type chest pain b/l more prominen t on the l., prioductive cough, SOB, dyspnea obn exersion and fever, chills Fever just low grade 99.5 No leukocytosis HIV test negative CT showed Diffuse, fluffy alveolar infiltrates most prominent in the lower lobes but there is involvement of the upper lobes as well with relative sparing of the apices. Diagnostic considerations include an unusual, diffuse pneumonic infiltrate versus pneumonitis which may also represent entities such as pulmonary hemorrhage secondary to vasculitis Review of Systems Respiratory: COMPLAINS OF: Cough, Sputum production Cardiovascular: COMPLAINS OF: Chest pain, Dyspnea on Exertion Except as stated in HPI: all other systems reviewed are Neg Past Family Social History Allergies: Coded Allergies: cephalexin (Verified Allergy, Unknown, 01/05/17) Past Medical History Diabetes mellitus, on metformin Obesity IV drug abuse Past Surgical History Right knee repair, left flexor tendons in his forearm were repaired, tonsillectomy Active Ordered Medications Medications where reviewed in EMR Antibiotics Include: vanco zosyn azithromycin Family History Mother 50s, healthy Father also healthy Brother healthy 2 children healthy Social History Moved from [place] Smokes a pack per day since the age of 13 Denies any recent alcohol abuse IV cocaine abuse, last use a days ago. +Marijuana Physical Exam Vital Signs Vital Signs Date Time Temp Pulse Resp B/P (MAP) Pulse Ox O2 Delivery O2 Flow Rate FiO2 01/06/17 14:00 98 01/06/17 13:00 16 01/06/17 12:00 99.1 87 22 116/54 (74) 99 01/06/17 12:00 90 01/06/17 10:00 92 01/06/17 09:30 16 01/06/17 08:00 99.3 87 22 110/61 (77) 99 01/06/17 08:00 87 01/06/17 06:00 94 01/06/17 04:00 99.6 92 21 105/68 (80) 99 01/06/17 04:00 96 01/06/17 02:00 86 01/06/17 00:00 96 01/06/17 00:00 99.5 97 21 101/55 (70) 93 01/05/17 22:00 99 01/05/17 20:30 99.5 102 27 107/61 (76) 99 01/05/17 20:09 01/05/17 19:37 98 17 92/53 (66) 99 Room Air 01/05/17 17:30 106 24 147/64 (91) 97 Nasal Cannula 2.00 Physical Exam CONSTITUTIONAL/GENERAL: This is an obese patient, in no apparent distress. TUBES/LINES/DRAINS: SKIN: No jaundice, rashes, or lesions. Ecchymoses on upper extremities. No wounds seen anteriorly. Skin temperature appropriate. Not diaphoretic. HEAD: Atraumatic. Normocephalic. EYES: Pupils equal and round and reactive. Extraocular motions intact. No scleral icterus. No injection or drainage. Fundi not examined. ENT: Hearing grossly normal. Nose without bleeding or purulent drainage. Throat without visible erythema, exudates, masses, or lesions. NECK: Trachea midline. Supple, nontender. No palpable thyroid enlargement or nodularity. CARDIOVASCULAR: Regular rate and rhythm without murmurs, gallops, or rubs. No JVD. Peripheral pulses symmetric. RESPIRATORY/CHEST: Symmetric, unlabored respirations. Clear to auscultation. Breath sounds equal bilaterally. No wheezes, rales, or rhonchi. GASTROINTESTINAL: Abdomen soft, non-tender, nondistended. No hepato-splenomegaly , or palpable masses. No guarding. Bowel sounds present. GENITOURINARY: Without palpable bladder distension. Alfaro catheter in place. MUSCULOSKELETAL: Extremities without clubbing, cyanosis, or edema. No joint tenderness or effusion noted. No calf tenderness. No mottling or clubbing. LYMPHATICS: No palpable cervical or supraclavicular adenopathy. NEUROLOGICAL: Awake and alert. Motor and sensory grossly within normal limits. Follows commands. Clear speech. Moves all extremities. PSYCHIATRIC: No obvious anxiety/depression. no apparent hallucinations or other psychotic thought process. Laboratory Laboratory Tests Test 01/05/17 17:25 01/05/17 18:20 01/05/17 20:35 01/05/17 22:13 Lactic Acid Level 2.2 Troponin I 0.30 Urine Color YELLOW Urine Turbidity CLEAR Urine pH 5.5 Urine Specific [place] 1.043 Urine Protein 30 Urine Glucose (UA) NEG Urine Ketones NEG Urine Occult Blood MOD Urine Nitrite NEG Urine Bilirubin NEG Urine Urobilinogen LESS THAN 2.0 Urine Leukocyte Esterase NEG Urine RBC 9 Urine WBC 7 Urine Squamous Epithelial Cells 1 Urine Bacteria OCC Urine Hyaline Casts 4 Microscopic Urinalysis Comment CULT NOT INDICATED Nasal Screen MRSA (PCR) MRSA NOT DETECTED Urine Opiates Screen NEG Urine Barbiturates Screen NEG Urine Amphetamines Screen NEG Urine Benzodiazepines Screen NEG Urine Cocaine Screen POS Urine Cannabinoids Screen NEG Test 01/05/17 22:30 01/06/17 09:28 Troponin I 0.24 0.16 Procalcitonin 12.16 White Blood Count 4.0 Red Blood Count 4.19 Hemoglobin 12.1 Hematocrit 34.8 Mean Corpuscular Volume 83.0 Mean Corpuscular Hemoglobin 29.0 Mean Corpuscular Hemoglobin Concent 34.9 Red Cell Distribution Width 14.4 Platelet Count 121 Mean Platelet Volume 9.6 Neutrophils (%) (Auto) 70.1 Lymphocytes (%) (Auto) 19.4 Monocytes (%) (Auto) 10.1 Eosinophils (%) (Auto) 0.3 Basophils (%) (Auto) 0.1 Neutrophils # (Auto) 2.8 Lymphocytes # (Auto) 0.8 Monocytes # (Auto) 0.4 Eosinophils # (Auto) 0.0 Basophils # (Auto) 0.0 CBC Comment DIFF FINAL Differential Comment Blood Urea Nitrogen 9 Creatinine 0.93 Random Glucose 115 Total Protein 5.8 Albumin 2.6 Calcium Level 8.4 Alkaline Phosphatase 40 Aspartate Amino Transf (AST/SGOT) 45 Alanine Aminotransferase (ALT/SGPT) 76 Total Bilirubin 0.6 Sodium Level 140 Potassium Level 3.6 Chloride Level 111 Carbon Dioxide Level 22.3 Anion Gap 7 Estimat Glomerular Filtration Rate 94 Lipase 42 Hepatitis A IgM Antibody NEGATIVE Hepatitis B Surface Antigen NEGATIVE Hepatitis B Core IgM Antibody NEGATIVE Hepatitis C Antibody REACTIVE HIV (1&2) Antibody NEGATIVE Date/Time Source Procedure Growth Status 01/05/17 14:55 Blood Peripheral Aerobic Blood Culture - Preliminary NO GROWTH IN 1 DAY Resulted 01/05/17 14:55 Blood Peripheral Anaerobic Blood Culture - Preliminary NO GROWTH IN 1 DAY Resulted 01/05/17 22:13 Sputum Expectorated Sputum Fungal Smear - Final NO FUNGAL ELEMENTS SEEN. Resulted 01/05/17 22:13 Sputum Expectorated Sputum Fungal Culture Pending Resulted 01/05/17 22:13 Urine Clean Catch Legionella Antigen - Final PRESUMPTIVE NEGATIVE FOR LEGIONELLA P... Complete 01/05/17 22:13 Urine Clean Catch Streptococcus pneumoniae Antigen (M - Final PRESUMPTIVE NEGATIVE FOR STREPTOCOCCU... Complete Result Diagram: 01/06/1792701/06/17927 Imaging Last Impressions Chest X-Ray 01/05/17 1354 Signed Impressions: Service Date/Time: Thursday, January 05, 2017 14:06 - CONCLUSION: 1. Diffuse patchy bilateral PICA opacities, most prominent in the right upper lung zone. Differential considerations include atypical pulmonary edema versus interstitial pneumonia versus atypical infection. Mook Bell MD CT Angiography 01/05/17 1355 Signed Impressions: Service Date/Time: Thursday, January 05, 2017 15:47 - CONCLUSION: 1. Diffuse , fluffy alveolar infiltrates most prominent in the lower lobes but there is involvement of the upper lobes as well with relative sparing of the apices. Diagnostic considerations include an unusual, diffuse pneumonic infiltrate versus pneumonitis. No associated effusions. 2. No pulmonary embolus. Thomas Perez MD ADDENDUM: The central lobar distribution of the infiltrate may also represent entities such as pulmonary hemorrhage secondary to vasculitis Thomas Perez MD Assessment and Plan Assessment and Plan IVDU DM Multilobar pulmonary infiltrates , PNA vs non infectious pneumonitis cont broad spectrum abx fu cputum clx Discussed Condition With residents Alexandria Haider MD Jan 06, 2017 16:54
--- NOTE | 2017-01-06 19:32 | MB ---
cc: Aron PRYOR M.D. DATE OF CONSULTATION: 01/06/2017. REASON FOR CONSULTATION: HISTORY OF PRESENT ILLNESS: Mr. Jones is a 31-year-old white male who presented with dyspnea and cough as well as some pleuritic chest pain, bilateral posterior. The cough was productive of a brownish colored phlegm. He denied nba hemoptysis. The patient smokes cigarettes regularly and has done so for about 20 years, he says, and also has been injecting IV cocaine over the last several weeks multiple times. 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 No recent travel. No other unusual exposures. He has also had a prior history of inhalation cocaine abuse but he said that was several years ago. Denies alcohol use. Denies any other illicit drugs. Denies any other exposure other than IV drug use as an HIV risk. He says he has been checked for HIV within the last year and several times previously and has always been negative. The patient denies fever. He has had some recent diarrhea. Denies skin rash or obvious skin infection recently. PAST MEDICAL HISTORY: 1. Right knee repair. 2. Left flexor tendon in his forearm repair. 3. Tonsillectomy. ALLERGIES: Apparently KEFLEX. FAMILY HISTORY: Parents are healthy. He has a brother who is healthy and two children who are in good health. SOCIAL HISTORY: Smoking and drug use as noted, occasionally smokes marijuana. Denies recent alcohol use. Works remodelling homes and construction. REVIEW OF SYSTEMS: No headache or presyncopal symptoms. No nausea or vomiting. No swelling in his legs. PHYSICAL EXAMINATION: GENERAL: The gentleman looks very comfortable at rest. VITAL SIGNS: O2 saturations 95% on room air. 98 degrees. 116/54, pulse is 80 and regular, respirations 16 to 20. HEAD, EYES, EARS, NOSE, THROAT: Sclerae anicteric. Mucous membranes are moist and no thrush. NECK: No adenopathy in the neck. CHEST: The chest is remarkably clear. No wheezes, no significant rhonchi or rales. HEART: Regular heart rhythm. No harsh murmur. ABDOMEN: Abdomen is soft. EXTREMITIES: No pitting edema. No calf tenderness. No cyanosis or clubbing. IMAGING STUDIES: CT scan reveals nodular infiltrative changes in both lower lobes. LABORATORY DATA: Hemoglobin is 12, white count is 4000, platelets 121,000, monocytes 10, neutrophils 70. Nasal screen for MRSA negative. Hepatitis C antibody positive, HIV negative, hepatitis B negative. Urine screen positive for cocaine. BUN and creatinine are normal. AST mildly elevated. Troponin mildly elevated. Albumin 2.6. DISCUSSION: Mr. Jones presents with a significant IV cocaine history recently, some inhalational cocaine use in the past, occasional marijuana and daily tobacco use. He actually looks remarkably well clinically. O2 sats are stable. My strongest suspicion is he has toxicity from cocaine injection. Obviously, infection is another possibility. He has been covered with broad-spectrum antibiotics at present and is afebrile. HIV was considered and that is been ruled out by serology. He may very well have associated chronic lung disease from smoking. Will continue his aerosol therapy and I will add a short course of corticosteroids as well. The patient is being monitored. I have explained to him that in all likelihood this is due to his IV cocaine abuse which obviously must be stopped. If he begins to improve on the current therapy, I do not think any further investigation is necessary. However if his status does not improve or worsens, then consideration of bronchoscopy or even thoracoscopic biopsy for definitive diagnosis may be necessary. R. MD CELIA Boyle/DANY /5:09 PM /7:20 PM
[2017-01-06] MEDS: AZITHROMYCIN 250 MG TAB PO SCH (20:23)
[2017-01-06] MEDS: ENOXAPARIN SODIUM 40 MG/0.4 ML SYRINGE SQ SCH (20:23)
[2017-01-06] MEDS: VANCOMYCIN 1,500 MG/NS 500 ML IV SCH ×2 (22:41)
[2017-01-07] VITALS (13 sets, daily range): BP systolic 121–148; BP diastolic 70–99; PULSE 61–98; RESP 14–20; TEMP 92.3–98.8; O2SAT 97–99
[2017-01-07] MEDS: MORPHINE SULFATE 2 MG/ML INJ IV PRN ×5 (01:48→21:51)
[2017-01-07] MEDS: SODIUM CHLOR 0.9% 1000 ML INJ 1,000 ML IV SCH ×2 (01:48→18:40)
[2017-01-07] MEDS ORDERED: VANCOMYCIN 1,500 MG/NS 500 ML IV SCH ×2 (03:00)
[2017-01-07] MEDS: CHLORHEXIDINE GLUCONATE 2 % 1 PACK (2 CLOTHS)(taper/protocol) TOPICAL SCH (03:57)
[2017-01-07] MEDS: RESP: ALBUTEROL 2.5 MG/IPRATROPIUM 0.5 MG NEB (SCH) NEB ×3 (04:08→19:14)
[2017-01-07] MEDS: PIPERACIL-TAZO 4.5 GM PREMIX 100 ML IV SCH ×2 (05:02→11:34)
[2017-01-07] MEDS: oxyCODONE/ACETAMINOPHEN 7.5 MG/325 MG TAB PO SCH ×4 (05:03→23:12)
[2017-01-07] MEDS: methylPREDNISolone SOD SUCC 40 MG/1 ML VIAL IV PUSH SCH ×3 (05:03→20:49)
--- NOTE | 2017-01-07 07:27 | HHI.FPPN ---
Subjective Remarks Patient was seen and examined this morning. He states his pain is much improved with scheduled pain medication. He denies chest pain but states his cough does cause the bilateral pleuritic back pain, worse on the right still. Pain is 8 out of 10 at the max with coughing fits. The coughing has overall improved as well. Eating and drinking without difficulty. He has had a bowel movement. He is urinating without difficulty. Not really ambulating yet. (Jerrica Purcell MD R2) Objective Vitals Vital Signs Date Time Temp Pulse Resp B/P (MAP) Pulse Ox O2 Delivery O2 Flow Rate FiO2 01/07/17 06:00 80 01/07/17 04:00 71 01/07/17 04:00 98.4 71 19 121/71 (88) 99 01/07/17 02:00 78 01/07/17 00:00 98.4 98 20 133/75 (94) 98 01/07/17 00:00 98 01/06/17 22:00 89 01/06/17 20:00 98.9 93 30 136/81 (99) 95 01/06/17 20:00 93 01/06/17 18:00 95 01/06/17 16:00 98.7 85 20 115/66 (82) 99 01/06/17 16:00 87 01/06/17 15:30 18 01/06/17 14:00 98 01/06/17 13:00 16 01/06/17 12:00 99.1 87 22 116/54 (74) 99 01/06/17 12:00 90 01/06/17 10:00 92 01/06/17 08:00 99.3 87 22 110/61 (77) 99 01/06/17 08:00 87 01/06/17 08:00 96 Room Air I/O 01/06/17 01/06/17 01/06/17 01/07/17 01/07/17 01/07/17 07:00 15:00 23:00 07:00 15:00 23:00 Intake Total 480 ml 100 ml 2070 ml 1575 ml Output Total 1150 ml 1500 ml 2400 ml Balance -670 ml 100 ml 570 ml -825 ml Intake Oral 480 ml 720 ml 960 ml IV Total 100 ml 1350 ml 615 ml Output Urine Total 1150 ml 1500 ml 2400 ml # Bowel Movements 0 1 (Jerrica Purcell MD R2) Result Diagram: 01/06/1728 01/06/17927 Imaging Last Impressions Chest X-Ray 01/05/171353 Signed Impressions: Service Date/Time: Thursday, January 05, 2017 14:06 - CONCLUSION: 1. Diffuse patchy bilateral PICA opacities, most prominent in the right upper lung zone. Differential considerations include atypical pulmonary edema versus interstitial pneumonia versus atypical infection. Mook Bell MD CT Angiography 01/05/171353 Signed Impressions: Service Date/Time: Thursday, January 05, 2017 15:47 - CONCLUSION: 1. Diffuse , fluffy alveolar infiltrates most prominent in the lower lobes but there is involvement of the upper lobes as well with relative sparing of the apices. Diagnostic considerations include an unusual, diffuse pneumonic infiltrate versus pneumonitis. No associated effusions. 2. No pulmonary embolus. Thomas Perez MD ADDENDUM: The central lobar distribution of the infiltrate may also represent entities such as pulmonary hemorrhage secondary to vasculitis Thomas Perez MD Objective Remarks GENERAL: Obese male sleeping, easily awakened, appears comfortable. SKIN: Warm and dry. No rashes or ecchymoses noted. HEAD: Atraumatic. Normocephalic. EYES: Pupils equal and round. No scleral icterus. No injection or drainage. ENT: No nasal bleeding or discharge. Mucous membranes pink and moist. NECK: Trachea midline. No JVD. CARDIOVASCULAR: Regular rate and rhythm. No murmurs on auscultation. RESPIRATORY: No accessory muscle use. Clear to auscultation. Breath sounds equal bilaterally. GASTROINTESTINAL: Abdomen soft, non-tender, obese, normal bowel sounds. Hepatic and splenic margins not palpable. MUSCULOSKELETAL: Extremities without clubbing, cyanosis, or edema. No obvious deformities. Extremities with 2+ pulses, no cyanosis edema. No splinter hemorrhages. NEUROLOGICAL: Awake and alert. No obvious cranial nerve deficits. Motor grossly within normal limits. Normal speech. PSYCHIATRIC: Appropriate mood and affect; insight and judgment normal. Medications and IVs Inpatient Medications Acetaminophen (Tylenol) 500 mg ONCE ONCE PO Last administered on 01/05/17t 16 :01; Start 01/05/17 at 15:30; Stop 01/05/17 at 15:31; Status DC Albuterol/ Ipratropium (Duoneb Neb) 1 ampule Q6HR NEB NEB Last administered on 01/07/17 04:08; Start 01/05/17 at 22:00 Azithromycin (Zithromax) 500 mg Q24H PO Last administered on 01/06/17 20:23; Start 01/05/17 at 20:00 Bisacodyl (Dulcolax Supp) 10 mg DAILY PRN RECTAL SEVERE CONSITIPATION; Start 01/05/17 at 17:45 Chlorhexidine Gluconate (Chlorhexidine 2% Cloth) 3 pack UNSCH PRN TOPICAL HYGIENIC CARE; Start 01/05/17 at 20:45; Stop 01/10/17 at 20:30 Clonidine (Catapres) 0.1 mg Q6H PRN PO SBP> OR = 180, DBP> OR = 100; Start at 17:45 Enoxaparin Sodium (Lovenox Inj) 40 mg Q24H SQ Last administered on 01/06/17 20:23; Start 01/06/17 at 20:00 Flumazenil (Romazicon Inj) 0.2 mg Q1M PRN IV PUSH SEE LABEL COMMENTS; Start at 21:30 Influenza Virus Vaccine (Flu (Quadrivalent) Vaccine Inj) 0.5 ml ONCE ONCE IM Last administered on 01/06/17 09:26; Start 01/06/17 at 09:00; Stop 01/06/17 at 09:01; Status DC Lactulose (Lactulose Liq) 30 ml DAILY PRN PO SEVERE CONSITIPATION; Start 01/05 at 17:45 Lorazepam (Ativan Inj) 2 mg Q15M PRN IV PUSH CIWA > 20; Start 01/05/17 at 21: 30 Lorazepam (Ativan) 2 mg Q2H PRN PO CIWA 11-14; Start 01/05/17 at 21:30 Magnesium Hydroxide (Milk Of Magnesia Liq) 30 ml Q12H PRN PO Mild constipation ; Start 01/05/17 at 17:45 Methylprednisolone Sodium Succinate (SoluMEDROL INJ) 40 mg Q8HR IV PUSH Last administered on 01/07/17 05:03; Start 01/06/17 at 14:00 Miscellaneous Information SPECIFIC LAB TO BE DRAWN:VANCO TROUGH DATE TO BE . ONCE ONCE .XX ; Start 01/07/17 at 14:45; Stop 01/07/17 at 14:45; Status DC Morphine Sulfate (Morphine Inj) 2 mg Q3H PRN IV BREAKTHROUGH PAIN Last administered on 01/07/17 01:48; Start 01/05/17 at 21:15 Naloxone HCl (Narcan Inj) 0.4 mg UNSCH PRN IV PUSH SEE LABEL COMMENTS; Start 01/05/17 at 17:45 Ondansetron HCl (Zofran Inj) 4 mg Q6H PRN IVP NAUSEA OR VOMITING; Start at 17:45 Oxycodone/ Acetaminophen (Percocet 7.5-325 Mg) 1 tab Q6H PO Last administered on 01/07/17 05:03; Start 01/06/17 at 11:00 Oxycodone/ Acetaminophen (Percocet 10-325 Mg) 2 tab Q6H PRN PO PAIN 6-10; Start 01/05/17 at 18:15 Pantoprazole Sodium (Protonix) 40 mg DAILY PO Last administered on 01/06/17 09:22; Start 01/05/17 at 21:45 Pharmacy Profile Note 0 ml @ 0 mls/hr UNSCH OTHER ; Start 01/06/17 at 16:15 Piperacillin Sod/ Tazobactam Sod 100 ml @ 200 mls/hr Q6H IV Last administered on 01/07/17 05:02; Start 01/05/17 at 23:00 Pneumococcal Polyvalent Vaccine (Pneumovax-23 Inj) 25 mcg ONCE ONCE IM Last administered on 01/06/17 09:25; Start 01/06/17 at 09:00; Stop 01/06/17 at 09 :01; Status DC Senna/Docusate Sodium (Teetee-Colace) 1 tab BID PO ; Start 01/06/17 at 11:00 Sennosides (Senokot) 17.2 mg Q12H PRN PO Moderate constipation; Start at 17:45 Sodium Chloride (NS Flush) 2 ml BID IV FLUSH Last administered on 01/06/17 20 :24; Start 01/06/17 at 09:00 Vancomycin HCl 1000 mg/Sodium Chloride 250 ml @ 250 mls/hr Q12H IV Last administered on 01/06/17t 15:16; Start 01/06/17 at 03:00; Stop 01/07/17 at 01 :59; Status DC Vancomycin HCl 1500 mg/Sodium Chloride 515 ml @ 257.5 mls/ hr Q12H IV ; Start 01/07/17 at 03:00; Stop 01/07/17 at 03:00; Status DC (Jerrica Purcell MD R2) Urinary Catheter: No (Jerrica Purcell MD R2) Vascular Central Line Catheter: No (Jerrica Purcell MD R2) A/P Assessment and Plan Mr. Jones is a 31-year-old male, with past medical history of diabetes, presenting with worsening shortness of breath and right-sided chest pain. CTA of chest showed diffuse fluffy alveolar infiltrates most prominent at the lower lobes. Differential diagnosis includes pneumonia, PE, aspiration pneumonitis, septic emboli. Clinically improving and being treated for pneumonia. He met sepsis criteria on admission. He was admitted to ICU but transfer to [facility] Discharge Planning Transfer from ICU to [facility] floor today. Possible discharge to home in 3-4 days. Requires further inpatient monitoring and to continue IV antibiotics, steroids until cultures result Pulmonology following, appreciate recommendations Infectious Disease following, appreciate recommendations (Jerrica Purcell MD R2) Attending Attestation Patient seen and examined. Case reviewed and discussed with the resident team. Agree with plan of care as discussed with me and documented in the resident note. (Miranda Perez MD) Problem List: (1) Sepsis ICD Codes: A41.9 - Sepsis, unspecified organism Status: Acute Plan: Patient no longer meets sepsis criteria at this time. Hospital course: Criteria for severe sepsis met on admission. Heart rate 135, RR 25, lactic acid 2.5. Labile BP is noted. Vital signs have stabilized this morning. Source: Possible bacteremia, endocarditis, atypical pneumonia, pneumonitis. Clinical picture suggestive of Legionella but Legionella antigen negative. Plan: -Status post 2 L bolus in ED, continue fluids at 1.5 maintenance NS -Broad-spectrum antibiotics: Vancomycin with dosing per pharmacy, Zosyn 4.5 g every 6, azithromycin 500 mg by mouth (01/04 - ) -Blood cultures 2 negative so far. Fungal culture pending. Sputum culture negative. -Consult infectious disease. We appreciate their expertise. (2) Elevated troponin ICD Codes: R74.8 - Abnormal levels of other serum enzymes Status: Acute Plan: Repeat 01/07 Hospital Course: Troponin on admission was 0.18 --> 0.30-->0.24 -->0.16 EKG showed normal sinus rhythm on admission, with no ST segment elevations or depressions. No Q waves. And no T-wave inversions. Suspect demand ischemia from underlying sepsis. If Troponin increases or there are signs of ischemia on EKG, will consult cardiology and treat for ACS. (3) Pneumonia ICD Codes: J18.9 - Pneumonia, unspecified organism Status: Acute Plan: CTA showed diffuse fluffy alveolar infiltrates most prominent in the lower lobes but there is involvement of the upper lobes as well with relative sparing of the apices. Diagnostic considerations include an unusual type use pneumonic infiltrate versus pneumonitis. No associated effusions. No pulmonary embolism noted on CTA. An addendum to the CT angiography showed: "The central lobar distribution of the infiltrate may also represent entity such as pulmonary hemorrhage secondary to vasculitis." -ABX as above -Supportive therapy with supplemental oxygen O2 sats > 90% -Duonebs Q6 hours scheduled -Urine legionella and pneumococcal Ag PCRs. -Consult pulmonology given the possibility of an alveolar hemorrhage as noted on CT: added Solu-Medrol 40 mg every 8 hr on 01/06 (4) Lactic acidosis ICD Codes: E87.2 - Acidosis Status: Acute Plan: Lactic acid decreased from 2.5 --> 2.2. Continue to trend per sepsis protocol. Repeat 01/07 (5) Leg numbness ICD Codes: R20.0 - Anesthesia of skin Status: Resolved Plan: May be central in origin given headaches worse with Valsalva and possible embolic source. Get CT scan head when stable. (6) IVDU (intravenous drug user) ICD Codes: F19.90 - Other psychoactive substance use, unspecified, uncomplicated Plan: [facility] protocol. Work up for endocarditis as above. 2D-ECHO. Blood cultures x 2. HIV and Hepatitis profile. Sputum for AFB. UDS positive for cocaine (7) Type 2 diabetes mellitus ICD Codes: E11.9 - Type 2 diabetes mellitus without complications Status: Chronic Plan: Patient on metformin as outpatient, will continue to monitor glucose and will hold metformin at this time. (8) Nutrition, metabolism, and development symptoms ICD Codes: R63.8 - Other symptoms and signs concerning food and fluid intake Plan: Nutrition: reg diet IVF: above DVT ppx: 40mg lovenox SQ daily GI ppx: 40mg pantoprazole PO daily (Jerrica Purcell MD R2) Problem Qualifiers (1) Sepsis: Qualified Codes: A41.9 - Sepsis, unspecified organism (2) Pneumonia: Qualified Codes: J18.9 - Pneumonia, unspecified organism Jerrica Purcell MD R2 Jan 07, 2017 07:27 Miranda Perez MD Jan 07, 2017 12:59
[2017-01-07] MEDS: DOCUSATE SODIUM 50 MG/SENNA 8.6 MG TAB PO SCH ×2 (08:10→20:48)
[2017-01-07] MEDS: PANTOPRAZOLE SOD 40 MG DELAYED RELEASE TAB PO SCH (08:10)
[2017-01-07] MEDS: VANCOMYCIN 1,500 MG/NS 500 ML IV SCH ×2 (11:34)
[2017-01-07] MEDS ORDERED: PHARMACY ORDERED LAB ONE (14:45)
[2017-01-07] MEDS ORDERED: RESP: ALBUTEROL 2.5 MG/IPRATROPIUM 0.5 MG NEB (PRN) ONE (15:14)
--- NOTE | 2017-01-07 16:51 | HHI.IDPN ---
Subjective Subjective Remarks doing better afebrile co pleuritic chest pain Antibiotics azithro zosyn vanco Allergies: Coded Allergies: cephalexin (Verified Allergy, Unknown, 01/05/17) Objective . Vital Signs Date Time Temp Pulse Resp B/P (MAP) Pulse Ox O2 Delivery O2 Flow Rate FiO2 01/07/17 12:40 20 01/07/17 12:00 97.8 83 18 146/83 (104) 97 01/07/17 10:15 20 01/07/17 09:15 92.3 61 18 144/94 (111) 98 01/07/17 08:00 98.8 65 14 145/93 (110) 99 01/07/17 08:00 65 01/07/17 08:00 99 Room Air 01/07/17 06:00 80 01/07/17 04:00 71 01/07/17 04:00 98.4 71 19 121/71 (88) 99 01/07/17 02:00 78 01/07/17 00:00 98.4 98 20 133/75 (94) 98 01/07/17 00:00 98 01/06/17 22:00 89 01/06/17 20:00 98.9 93 30 136/81 (99) 95 01/06/17 20:00 93 01/06/17 18:00 95 . Laboratory Tests Test 01/06/17 09:28 White Blood Count 4.0 TH/MM3 Red Blood Count 4.19 MIL/MM3 Hemoglobin 12.1 GM/DL Hematocrit 34.8 % Mean Corpuscular Volume 83.0 FL Mean Corpuscular Hemoglobin 29.0 PG Mean Corpuscular Hemoglobin Concent 34.9 % Red Cell Distribution Width 14.4 % Platelet Count 121 TH/MM3 Mean Platelet Volume 9.6 FL Neutrophils (%) (Auto) 70.1 % Lymphocytes (%) (Auto) 19.4 % Monocytes (%) (Auto) 10.1 % Eosinophils (%) (Auto) 0.3 % Basophils (%) (Auto) 0.1 % Neutrophils # (Auto) 2.8 TH/MM3 Lymphocytes # (Auto) 0.8 TH/MM3 Monocytes # (Auto) 0.4 TH/MM3 Eosinophils # (Auto) 0.0 TH/MM3 Basophils # (Auto) 0.0 TH/MM3 CBC Comment DIFF FINAL Differential Comment Laboratory Tests Test 01/05/17 17:25 01/05/17 22:30 01/06/17 09:28 Lactic Acid Level 2.2 mmol/L Troponin I 0.30 NG/ML 0.24 NG/ML 0.16 NG/ML Procalcitonin 12.16 ng/mL Blood Urea Nitrogen 9 MG/DL Creatinine 0.93 MG/DL Random Glucose 115 MG/DL Total Protein 5.8 GM/DL Albumin 2.6 GM/DL Calcium Level 8.4 MG/DL Alkaline Phosphatase 40 U/L Aspartate Amino Transf (AST/SGOT) 45 U/L Alanine Aminotransferase (ALT/SGPT) 76 U/L Total Bilirubin 0.6 MG/DL Sodium Level 140 MEQ/L Potassium Level 3.6 MEQ/L Chloride Level 111 MEQ/L Carbon Dioxide Level 22.3 MEQ/L Anion Gap 7 MEQ/L Estimat Glomerular Filtration Rate 94 ML/MIN Lipase 42 U/L Microbiology Date/Time Source Procedure Growth Status 01/05/17 14:55 Blood Peripheral Aerobic Blood Culture - Preliminary NO GROWTH IN 2 DAYS Resulted 01/05/17 14:55 Blood Peripheral Anaerobic Blood Culture - Preliminary NO GROWTH IN 2 DAYS Resulted 01/05/17 14:50 Blood Peripheral Aerobic Blood Culture - Preliminary NO GROWTH IN 2 DAYS Resulted 01/05/17 14:50 Blood Peripheral Anaerobic Blood Culture - Preliminary NO GROWTH IN 2 DAYS Resulted 01/05/17 22:13 Sputum Expectorated Sputum Fungal Smear - Final NO FUNGAL ELEMENTS SEEN. Resulted 01/05/17 22:13 Sputum Expectorated Sputum Fungal Culture Pending Resulted 01/05/17 22:13 Sputum Expectorated Sputum Acid Fast Stain - Final NO ACID FAST BACILLI SEEN Resulted 01/05/17 22:13 Sputum Expectorated Sputum Mycobacterial Culture Pending Resulted 01/05/17 22:13 Sputum Expectorated Sputum Gram Stain - Final Resulted 01/05/17 22:13 Sputum Expectorated Sputum Sputum Culture - Preliminary HEAVY GROWTH NORMAL RESPIRATORY JORDAN... Resulted 01/05/17 14:00 Nasal Aspirate Influenza Types A,B Antigen (LEAH) - Final NEGATIVE FOR FLU A AND B ANTIGEN.... Complete 01/05/17 22:13 Urine Clean Catch Legionella Antigen - Final PRESUMPTIVE NEGATIVE FOR LEGIONELLA P... Complete 01/05/17 22:13 Urine Clean Catch Streptococcus pneumoniae Antigen (M - Final PRESUMPTIVE NEGATIVE FOR STREPTOCOCCU... Complete Imaging Last Impressions Chest X-Ray 01/05/17 [id number] Signed Impressions: Service Date/Time: Thursday, January 05, 2017 14:06 - CONCLUSION: 1. Diffuse patchy bilateral PICA opacities, most prominent in the right upper lung zone. Differential considerations include atypical pulmonary edema versus interstitial pneumonia versus atypical infection. Mook Bell MD CT Angiography 01/05/17 [id number] Signed Impressions: Service Date/Time: Thursday, January 05, 2017 15:47 - CONCLUSION: 1. Diffuse , fluffy alveolar infiltrates most prominent in the lower lobes but there is involvement of the upper lobes as well with relative sparing of the apices. Diagnostic considerations include an unusual, diffuse pneumonic infiltrate versus pneumonitis. No associated effusions. 2. No pulmonary embolus. Thomas Perez MD ADDENDUM: The central lobar distribution of the infiltrate may also represent entities such as pulmonary hemorrhage secondary to vasculitis Thomas Perez MD Physical Exam CONSTITUTIONAL/GENERAL: This is an obese patient, in no apparent distress. TUBES/LINES/DRAINS: SKIN: No jaundice, rashes, or lesions. Ecchymoses on upper extremities. No wounds seen anteriorly. Skin temperature appropriate. Not diaphoretic. CARDIOVASCULAR: Regular rate and rhythm without murmurs, gallops, or rubs. No JVD. Peripheral pulses symmetric. RESPIRATORY/CHEST: Symmetric, unlabored respirations. Clear to auscultation. Breath sounds equal bilaterally. No wheezes, rales, or rhonchi. GASTROINTESTINAL: Abdomen soft, non-tender, nondistended. No hepato-splenomegaly , or palpable masses. Bowel sounds present. GENITOURINARY: Without palpable bladder distension. MUSCULOSKELETAL: Extremities without clubbing, cyanosis, or edema. No joint tenderness or effusion noted. No calf tenderness. NEUROLOGICAL: Awake and alert. Motor and sensory grossly within normal limits. Follows commands. Clear speech. Moves all extremities. PSYCHIATRIC: calm, pleasant Assessment & Plan Remarks IVDU DM Multilobar pulmonary infiltrates , PNA vs non infectious pneumonitis - sputum with nl resp jordan Resp insufficiency - resolved Agree that likely cocain damage Cephalexin allergy dc vanco, zosyn dc azithro start levaquine fu sputum clx untill final - anticipate transition to po abx to complete 7 day pneumoni (CAP) course, if nothing elso grow in his sputum clx Discussed Condition With Alexandria Lopez MD Jan 07, 2017 16:51
[2017-01-07] MEDS: LEVOFLOXACIN 750 MG TAB PO SCH (18:03)
[2017-01-07 18:46] LABS: AUTOMATED NEUTROPHIL # 4.9 TH/MM3 (1.8-7.7); BASOPHIL % 0.1 % (0.0-2.0); HEMATOCRIT 36.1 % (39.0-51.0); HEMO FLAGS DIFF FINAL; LYMPH % 8.6 % (9.0-44.0); LYMPHOCYTE # 0.5 TH/MM3 (1.0-4.8); MEAN CELL VOLUME 84.6 FL (80.0-100.0); MEAN CORPUSCULAR HGB CONC 34.3 % (32.0-36.0); MONO % 5.2 % (0.0-8.0); NEUT % 86.1 % (16.0-70.0); PLATELET COUNT 174 TH/MM3 (150-450); RED BLOOD COUNT 4.27 MIL/MM3 (4.50-5.90); RED CELL DISTRIBUTION WIDTH 14.2 % (11.6-17.2); WHITE BLOOD COUNT 5.7 TH/MM3 (4.0-11.0)
[2017-01-07 19:13] LABS: ALT (GPT) 60 U/L (12-78); ANION GAP 9 MEQ/L (5-15); AST (GOT) 22 U/L (15-37); BICARBONATE 22.4 MEQ/L (21.0-32.0); BLOOD UREA NITROGEN 9 MG/DL (7-18); CHLORIDE 106 MEQ/L (98-107); GLOMERULAR FILTRATION RATE 76 ML/MIN (>89); POTASSIUM 4.1 MEQ/L (3.5-5.1); SODIUM (NA) 137 MEQ/L (136-145)
[2017-01-07 19:18] LABS: ALKALINE PHOSPHATASE 56 U/L (45-117); CREATINE KINASE 163 U/L (39-308); TOTAL BILIRUBIN ADULT 0.4 MG/DL (0.2-1.0)
[2017-01-07 20:40] LABS: CKMB 3.8 NG/ML (0.5-3.6)
[2017-01-07] MEDS: SODIUM CHLORIDE 0.9% FLUSH 10 ML FLUSH IV FLUSH SCH (20:47)
[2017-01-07] MEDS: ENOXAPARIN SODIUM 40 MG/0.4 ML SYRINGE SQ SCH (20:48)
[2017-01-07] MEDS: INSULIN ASPART SUPPLEMENTAL SCALE SQ SCH (22:33)
[2017-01-08] VITALS (7 sets, daily range): BP systolic 136–162; BP diastolic 72–90; PULSE 57–78; RESP 16–18; TEMP 97.5–98.9; O2SAT 97–99
[2017-01-08] MEDS: SODIUM CHLOR 0.9% 1000 ML INJ 1,000 ML IV SCH (01:20)
[2017-01-08] MEDS: MORPHINE SULFATE 2 MG/ML INJ IV PRN ×3 (01:37→13:49)
[2017-01-08] MEDS: CHLORHEXIDINE GLUCONATE 2 % 1 PACK (2 CLOTHS)(taper/protocol) TOPICAL SCH (03:35)
[2017-01-08] MEDS: oxyCODONE/ACETAMINOPHEN 7.5 MG/325 MG TAB PO SCH ×4 (04:59→22:39)
[2017-01-08] MEDS: INSULIN ASPART SUPPLEMENTAL SCALE SQ SCH ×4 (08:00→21:08)
[2017-01-08] MEDS ORDERED: INSULIN ASPART SUPPLEMENTAL SCALE SQ SCH (08:00)
[2017-01-08] MEDS: methylPREDNISolone SOD SUCC 40 MG/1 ML VIAL IV PUSH SCH ×2 (09:04→21:07)
[2017-01-08] MEDS: DOCUSATE SODIUM 50 MG/SENNA 8.6 MG TAB PO SCH ×2 (09:04→21:00)
[2017-01-08] MEDS: PANTOPRAZOLE SOD 40 MG DELAYED RELEASE TAB PO SCH (09:04)
[2017-01-08] MEDS: SODIUM CHLORIDE 0.9% FLUSH 10 ML FLUSH IV FLUSH SCH ×2 (09:05→21:07)
[2017-01-08] MEDS: RESP: ALBUTEROL 2.5 MG/IPRATROPIUM 0.5 MG NEB (SCH) NEB ×2 (09:31→19:49)
--- NOTE | 2017-01-08 09:31 | HHI.FPPN ---
Subjective Remarks Pt states that he is doing ok this morning. Still having CP with deep breathing. Also, right lower back pain with coughing. His cough is productive. No fever/chills, no shortness of breath, no abdominal pain. Is having some loose BMs (had 4 yesterday). Vomited once yesterday. Blood sugar went up to 355 last night, since started on solumedrol. Sugars usually well controlled at home with metformin. (Selena Moffett MD R1) Objective Vitals Vital Signs Date Time Temp Pulse Resp B/P (MAP) Pulse Ox O2 Delivery O2 Flow Rate FiO2 01/08/17 04:00 Room Air 01/08/17 03:50 97.7 63 16 136/80 (98) 98 01/08/17 00:00 Room Air 01/07/17 23:13 97.9 68 16 148/91 (110) 97 01/07/17 20:00 Room Air 01/07/17 20:00 69 01/07/17 19:40 98.2 95 16 135/81 (99) 98 01/07/17 19:14 98 21 01/07/17 16:00 98.0 62 18 148/99 (115) 98 01/07/17 14:20 20 01/07/17 12:40 20 01/07/17 12:00 97.8 83 18 146/83 (104) 97 01/07/17 09:15 92.3 61 18 144/94 (111) 98 I/O 01/07/17 01/07/17 01/07/17 01/08/17 01/08/17 01/08/17 07:00 15:00 23:00 07:00 15:00 23:00 Intake Total 1575 ml 1000 ml 480 ml Output Total 2400 ml 700 ml 600 ml Balance -825 ml 300 ml -120 ml Intake Oral 960 ml 1000 ml 480 ml IV Total 615 ml Output Urine Total 2400 ml 700 ml 600 ml # Bowel Movements 1 1 0 (Selena Moffett MD R1) Result Diagram: 01/07/17180901/07/171809 Imaging Last Impressions Chest X-Ray 01/05/17 1354 Signed Impressions: Service Date/Time: Thursday, January 05, 2017 14:06 - CONCLUSION: 1. Diffuse patchy bilateral PICA opacities, most prominent in the right upper lung zone. Differential considerations include atypical pulmonary edema versus interstitial pneumonia versus atypical infection. Mook Bell MD CT Angiography 01/05/17 1354 Signed Impressions: Service Date/Time: Thursday, January 05, 2017 15:47 - CONCLUSION: 1. Diffuse , fluffy alveolar infiltrates most prominent in the lower lobes but there is involvement of the upper lobes as well with relative sparing of the apices. Diagnostic considerations include an unusual, diffuse pneumonic infiltrate versus pneumonitis. No associated effusions. 2. No pulmonary embolus. Thomas Perez MD ADDENDUM: The central lobar distribution of the infiltrate may also represent entities such as pulmonary hemorrhage secondary to vasculitis Thomas Perez MD Objective Remarks GENERAL: Obese male sitting in bed, appears comfortable, no acute distress. SKIN: Warm and dry. No rashes or ecchymoses noted. Tattoos HEAD: Atraumatic. Normocephalic. EYES: Pupils equal and round. No scleral icterus. No injection or drainage. ENT: No nasal bleeding or discharge. Mucous membranes pink and moist. NECK: Trachea midline. No JVD. CARDIOVASCULAR: Regular rate and rhythm. No murmurs on auscultation. RESPIRATORY: No accessory muscle use. Clear to auscultation. Breath sounds equal bilaterally. GASTROINTESTINAL: Abdomen soft, non-tender, obese, normal bowel sounds. Hepatic and splenic margins not palpable. MUSCULOSKELETAL: Extremities without clubbing, cyanosis, or edema. No obvious deformities. Extremities with 2+ pulses, no cyanosis edema. No splinter hemorrhages. right lower back tenderness to palpation. NEUROLOGICAL: Awake and alert. No obvious cranial nerve deficits. Motor grossly within normal limits. Normal speech. PSYCHIATRIC: Appropriate mood and affect; insight and judgment normal. (Selena Moffett MD R1) A/P Assessment and Plan Mr. Jones is a 31-year-old male, with past medical history of diabetes, presenting with worsening shortness of breath and right-sided chest pain. CTA of chest showed diffuse fluffy alveolar infiltrates most prominent at the lower lobes. Differential diagnosis includes pneumonia, PE, aspiration pneumonitis, septic emboli. Clinically improving and being treated for pneumonia. He met sepsis criteria on admission. He was admitted to ICU but transfer to [facility] Discharge Planning Transfer from ICU to [facility] floor today. Possible discharge to home in 3-4 days. Requires further inpatient monitoring and to continue IV antibiotics, steroids until cultures result Pulmonology following, appreciate recommendations Infectious Disease following, appreciate recommendations (Selena Moffett MD R1) Attending Attestation Patient seen and examined. Case reviewed and discussed with the resident team. Agree with plan of care as discussed with me and documented in the resident note. (Miranda Perez MD) Problem List: (1) Sepsis ICD Codes: A41.9 - Sepsis, unspecified organism Status: Acute Plan: Patient no longer meets sepsis criteria at this time. Hospital course: Criteria for severe sepsis met on admission. Heart rate 135, RR 25, lactic acid 2.5. Labile BP is noted. Vital signs have stabilized. Source: Possible bacteremia, endocarditis, atypical pneumonia, pneumonitis. Clinical picture suggestive of Legionella but Legionella antigen negative. Plan: -Status post 2 L bolus in ED, continue fluids at 1.5 maintenance NS -Broad-spectrum antibiotics: Vancomycin with dosing per pharmacy, Zosyn 4.5 g every 6, azithromycin 500 mg by mouth (01/04 -01/07) -Levaquin 750mg po qD (01/07- ) -Blood cultures 2 negative so far. Fungal culture pending. Sputum culture negative. -Consult infectious disease. We appreciate their expertise. (2) Elevated troponin ICD Codes: R74.8 - Abnormal levels of other serum enzymes Status: Acute Plan: Repeat 01/07 Hospital Course: Troponin on admission was 0.18 --> 0.30-->0.24 -->0.16 EKG showed normal sinus rhythm on admission, with no ST segment elevations or depressions. No Q waves. And no T-wave inversions. Suspect demand ischemia from underlying sepsis. If Troponin increases or there are signs of ischemia on EKG, will consult cardiology and treat for ACS. (3) Pneumonia ICD Codes: J18.9 - Pneumonia, unspecified organism Status: Acute Plan: CTA showed diffuse fluffy alveolar infiltrates most prominent in the lower lobes but there is involvement of the upper lobes as well with relative sparing of the apices. Diagnostic considerations include an unusual type use pneumonic infiltrate versus pneumonitis. No associated effusions. No pulmonary embolism noted on CTA. An addendum to the CT angiography showed: "The central lobar distribution of the infiltrate may also represent entity such as pulmonary hemorrhage secondary to vasculitis." -ABX as above -Supportive therapy with supplemental oxygen O2 sats > 90% -Duonebs Q6 hours scheduled -Urine legionella and pneumococcal Ag PCRs. -Consult pulmonology given the possibility of an alveolar hemorrhage as noted on CT: added Solu-Medrol 40 mg every 8 hr on 01/06 (4) Lactic acidosis ICD Codes: E87.2 - Acidosis Status: Acute Plan: Lactic acid decreased from 2.5 --> 2.2. Continue to trend per sepsis protocol. Repeat 01/08 pending (5) Hepatitis C antibody test positive ICD Codes: R76.8 - Other specified abnormal immunological findings in serum Status: Acute Plan: Hepatitis C antibody test reactive. Likely due to his IV drug use. * Will inform patient tomorrow after getting results of RNA quant and genotype (6) IVDU (intravenous drug user) ICD Codes: F19.90 - Other psychoactive substance use, unspecified, uncomplicated Plan: CIWA protocol. Work up for endocarditis as above. 2D-ECHO. Blood cultures x 2. HIV and Hepatitis profile * HIV negative * Hep C Ab reactive- see above. Sputum for AFB. UDS positive for cocaine (7) Type 2 diabetes mellitus ICD Codes: E11.9 - Type 2 diabetes mellitus without complications Status: Chronic Plan: Patient on metformin as outpatient, will continue to monitor glucose and will hold metformin at this time. * Blood sugars have increased since starting Solumedrol * Started low dose sliding scale insulin on 01/07 (8) Nutrition, metabolism, and development symptoms ICD Codes: R63.8 - Other symptoms and signs concerning food and fluid intake Plan: Nutrition: reg diet IVF: above DVT ppx: 40mg lovenox SQ daily GI ppx: 40mg pantoprazole PO daily (Selena Moffett MD R1) Problem Qualifiers (1) Sepsis: Qualified Codes: A41.9 - Sepsis, unspecified organism (2) Pneumonia: Qualified Codes: J18.9 - Pneumonia, unspecified organism Selena Moffett MD R1 Jan 08, 2017 09:31 Miranda Perez MD Jan 08, 2017 10:09
--- NOTE | 2017-01-08 10:23 | HHI.PR ---
Subjective Remarks 01/08 Patient reports productive cough and pleuritic CP with deep inspiration. Afebrile. On room air oxygen Objective Vital Signs Vital Signs Date Time Temp Pulse Resp B/P (MAP) Pulse Ox O2 Delivery O2 Flow Rate FiO2 01/08/17 09:33 99 01/08/17 08:00 97.5 57 18 142/88 (106) 99 01/08/17 04:00 Room Air 01/08/17 03:50 97.7 63 16 136/80 (98) 98 01/08/17 00:00 Room Air 01/07/17 23:13 97.9 68 16 148/91 (110) 97 01/07/17 20:00 Room Air 01/07/17 20:00 69 01/07/17 19:40 98.2 95 16 135/81 (99) 98 01/07/17 19:14 98 21 01/07/17 16:00 98.0 62 18 148/99 (115) 98 01/07/17 14:20 20 01/07/17 12:40 20 01/07/17 12:00 97.8 83 18 146/83 (104) 97 I/O 01/07/17 01/07/17 01/07/17 01/08/17 01/08/17 01/08/17 07:00 15:00 23:00 07:00 15:00 23:00 Intake Total 1575 ml 1000 ml 480 ml Output Total 2400 ml 700 ml 600 ml Balance -825 ml 300 ml -120 ml Intake Oral 960 ml 1000 ml 480 ml IV Total 615 ml Output Urine Total 2400 ml 700 ml 600 ml # Bowel Movements 1 1 0 Result Diagram: 01/07/17 1810 01/07/17 1810 Other Results Last Impressions Chest X-Ray 01/05/17 135 Signed Impressions: Service Date/Time: Thursday, January 05, 2017 14:06 - CONCLUSION: 1. Diffuse patchy bilateral PICA opacities, most prominent in the right upper lung zone. Differential considerations include atypical pulmonary edema versus interstitial pneumonia versus atypical infection. Mook Bell MD CT Angiography 01/05/17 1353 Signed Impressions: Service Date/Time: Thursday, January 05, 2017 15:47 - CONCLUSION: 1. Diffuse , fluffy alveolar infiltrates most prominent in the lower lobes but there is involvement of the upper lobes as well with relative sparing of the apices. Diagnostic considerations include an unusual, diffuse pneumonic infiltrate versus pneumonitis. No associated effusions. 2. No pulmonary embolus. Thmoas Perez MD ADDENDUM: The central lobar distribution of the infiltrate may also represent entities such as pulmonary hemorrhage secondary to vasculitis Thomas Perez MD Objective Remarks GENERAL: SKIN: Warm and dry. HEAD: Normocephalic. EYES: No scleral icterus. No injection or drainage. NECK: Supple, trachea midline. No JVD or lymphadenopathy. CARDIOVASCULAR: Regular rate and rhythm without murmurs, gallops, or rubs. RESPIRATORY: Breath sounds equal bilaterally. No accessory muscle use. GASTROINTESTINAL: Abdomen soft, non-tender, nondistended. MUSCULOSKELETAL: No cyanosis, or edema. BACK: Nontender without obvious deformity. No CVA tenderness. Neuro: Awake and alert A/P Assessment and Plan 1)Resp Insuff 2)Diffuse b/l airspace disease ddx: Atypical pulm edema vs 2nd cocaine use vs infectious process 3)IVDU- Cocaine use 4)DM Plan Oxygen PRN keep sat >92% Bronchodilators, solumederol 40mg BID Check CXR Continue with abx per ID ( Levaquin)monitor for signs of infections ( Fever, WBC ) Sputum cx, strep pneumonia and Legionella urinary Ag negative on 01/05 Echo showed EF 55-60% d/c IVF GI/DVT prophylaxis- on Protonix and Lovenox respectively. Ruby Bailey MD Jan 08, 2017 10:23
[2017-01-08] MEDS ORDERED: PHARMACY ORDERED LAB ONE (10:45)
[2017-01-08 11:31] LABS: PROTHROMBIN TIME - PATIENT 11.3 SEC (9.8-11.6)
--- NOTE | 2017-01-08 11:34 | RADRPT ---
EXAM DATE/TIME: 01/08/2017 11:29 [facility] COMPARISON: CHEST SINGLE AP, January 05, 2017, 14:06. INDICATIONS : Shortness of breath. MEDICAL HISTORY : None. SURGICAL HISTORY : None. ENCOUNTER: Subsequent ACUITY: 1 week PAIN SCORE: 5/10 LOCATION: Bilateral chest FINDINGS: Improved aeration of the lungs bilaterally with minimal residual pulmonary infiltrate/vascular conges tion noted. The heart is minimally prominent. CONCLUSION: 1. Improved aeration of lungs bilaterally with minimal residual pulmonary infiltrate/vascular congest ion noted. 2. Minimal cardiomegaly. Gary Zhou MD on January 08, 2017 at 11:30 Board Certified Radiologist. This report was verified electronically.
[2017-01-08] MEDS: LACTOBACILLUS ACIDOPHILUS 1 GM PACKET PO SCH ×2 (13:52→18:01)
[2017-01-08] MEDS: LEVOFLOXACIN 750 MG TAB PO SCH (18:01)
[2017-01-08] MEDS: ENOXAPARIN SODIUM 40 MG/0.4 ML SYRINGE SQ SCH (21:07)
[2017-01-09] VITALS: BP 168/100; PULSE 72; RESP 18; TEMP 98.3; O2SAT 98
[2017-01-09] MEDS: MORPHINE SULFATE 2 MG/ML INJ IV PRN ×3 (02:29→22:34)
[2017-01-09] MEDS: CHLORHEXIDINE GLUCONATE 2 % 1 PACK (2 CLOTHS)(taper/protocol) TOPICAL SCH (02:29)
[2017-01-09] MEDS: oxyCODONE/ACETAMINOPHEN 7.5 MG/325 MG TAB PO SCH ×2 (05:00→11:06)
[2017-01-09 08:00] VITALS: BP 158/93; PULSE 53; PULSE 63; PULSE 78; RESP 20; TEMP 97.8; O2SAT 98
[2017-01-09] MEDS: RESP: ALBUTEROL 2.5 MG/IPRATROPIUM 0.5 MG NEB (SCH) NEB ×2 (08:00→19:20)
[2017-01-09] MEDS: INSULIN ASPART SUPPLEMENTAL SCALE SQ SCH ×4 (08:00→21:46)
[2017-01-09 08:15] VITALS: O2SAT 98
[2017-01-09] MEDS: DOCUSATE SODIUM 50 MG/SENNA 8.6 MG TAB PO SCH ×2 (09:01→21:00)
[2017-01-09] MEDS: LACTOBACILLUS ACIDOPHILUS 1 GM PACKET PO SCH ×4 (09:01→19:14)
[2017-01-09] MEDS: PANTOPRAZOLE SOD 40 MG DELAYED RELEASE TAB PO SCH (09:01)
[2017-01-09] MEDS: methylPREDNISolone SOD SUCC 40 MG/1 ML VIAL IV PUSH SCH ×2 (09:02→21:46)
[2017-01-09] MEDS: SODIUM CHLORIDE 0.9% FLUSH 10 ML FLUSH IV FLUSH SCH ×2 (09:02→21:45)
--- NOTE | 2017-01-09 10:08 | RADRPT ---
EXAM DATE/TIME: 01/09/2017 08:34 [facility] COMPARISON: CHEST SINGLE AP, January 08, 2017, 11:29. INDICATIONS : Shortness of breath, follow up on status of pneumonia. MEDICAL HISTORY : None. SURGICAL HISTORY : None. ENCOUNTER: Initial ACUITY: 4 - 6 days PAIN SCORE: 0/10 LOCATION: Bilateral chest FINDINGS: The heart is mildly enlarged. Mild increased interstitial markings are noted bilaterally suggestive of mild pulmonary vascular congestion or pneumonitis. Clinical correlation is recommended. CONCLUSION: 1. Mild increased interstitial markings bilaterally suggestive of mild pulmonary vascular congestion or pneumonitis. Clinical correlation is recommended. 2. Cardiomegaly. Gary Zhou MD on January 09, 2017 at 10:01 Board Certified Radiologist. This report was verified electronically.
--- NOTE | 2017-01-09 10:13 | HHI.FPPN ---
Subjective Remarks Patient is seen and examined today. He states he continues to have right pleuritic back pain at times. He does not have any other complaints today. He denies shortness of breath and chest pain. He states that the client experience administrator who saw him last week stated that he needed to stay until Tuesday and notes he has no follow-up. (Jerrica Purcell MD R2) Objective Vitals Vital Signs Date Time Temp Pulse Resp B/P (MAP) Pulse Ox O2 Delivery O2 Flow Rate FiO2 01/09/17 08:15 98 01/09/17 08:00 97.8 53 20 158/93 (114) 98 01/09/17 00:00 98.3 72 18 168/100 (122) 98 01/08/17 20:00 Room Air 01/08/17 20:00 78 01/08/17 20:00 98.9 75 18 162/90 (114) 98 01/08/17 19:51 99 21 01/08/17 16:00 98.4 68 18 153/79 (103) 97 01/08/17 12:00 98.4 67 18 141/72 (95) 99 I/O 01/08/17 01/08/17 01/08/17 01/09/17 01/09/17 01/09/17 07:00 15:00 23:00 07:00 15:00 23:00 Intake Total 480 ml 1920 ml Output Total 600 ml Balance -120 ml 1920 ml Intake Oral 480 ml 1920 ml Output Urine Total 600 ml # Voids 4 # Bowel Movements 0 (Jerrica Purcell MD R2) Result Diagram: 01/07/17180901/07/171809 Imaging Last Impressions Chest X-Ray 01/09/17 0800 Signed Impressions: Service Date/Time: Monday, January 09, 2017 08:34 - CONCLUSION: 1. Mild increased interstitial markings bilaterally suggestive of mild pulmonary vascular congestion or pneumonitis. Clinical correlation is recommended. 2. Cardiomegaly. Gary Zhou MD CT Angiography 01/05/17 2060 Signed Impressions: Service Date/Time: Thursday, January 05, 2017 15:47 - CONCLUSION: 1. Diffuse , fluffy alveolar infiltrates most prominent in the lower lobes but there is involvement of the upper lobes as well with relative sparing of the apices. Diagnostic considerations include an unusual, diffuse pneumonic infiltrate versus pneumonitis. No associated effusions. 2. No pulmonary embolus. Thomas Perez MD ADDENDUM: The central lobar distribution of the infiltrate may also represent entities such as pulmonary hemorrhage secondary to vasculitis Thomas Perez MD Objective Remarks GENERAL: Obese male sitting in bed, appears comfortable, no acute distress. SKIN: Warm and dry. No rashes or ecchymoses noted. Tattoos noted on the skin. HEAD: Atraumatic. Normocephalic. EYES: Pupils equal and round. No scleral icterus. No injection or drainage. ENT: No nasal bleeding or discharge. Mucous membranes pink and moist. NECK: Trachea midline. No JVD. CARDIOVASCULAR: Regular rate and rhythm. No murmurs on auscultation. RESPIRATORY: No accessory muscle use. Clear to auscultation with no crackles or wheezes. Breath sounds equal bilaterally. GASTROINTESTINAL: Abdomen soft, non-tender, obese, normal bowel sounds. Hepatic and splenic margins not palpable. MUSCULOSKELETAL: Extremities without clubbing, cyanosis, or edema. No obvious deformities. Extremities with 2+ pulses, no cyanosis edema. No splinter hemorrhages. Right lower back tenderness to palpation. NEUROLOGICAL: Awake and alert. No obvious cranial nerve deficits. Motor grossly within normal limits. Normal speech. PSYCHIATRIC: Appropriate mood and affect; insight and judgment normal. Medications and IVs Inpatient Medications Acetaminophen (Tylenol) 500 mg ONCE ONCE PO Last administered on 01/05/17 16 :01; Start 01/05/17 at 15:30; Stop 01/05/17 at 15:31; Status DC Albuterol/ Ipratropium (Duoneb Neb) 1 ampule TID NEB NEB Last administered on 01/08/17 19:49; Start 01/07/17 at 20:00 Azithromycin (Zithromax) 500 mg Q24H PO Last administered on 01/06/17 20:23; Start 01/05/17 at 20:00; Stop 01/07/17 at 16:53; Status DC Bisacodyl (Dulcolax Supp) 10 mg DAILY PRN RECTAL SEVERE CONSITIPATION; Start 01/05/17 at 17:45 Bumetanide (Bumex Inj) 1 mg ONCE ONCE IV PUSH ; Start 01/09/17 at 11:00; Stop 01/09/17 at 11:01; Status DC Chlorhexidine Gluconate (Chlorhexidine 2% Cloth) 3 pack UNSCH PRN TOPICAL HYGIENIC CARE; Start 01/05/17 at 20:45; Stop 01/10/17 at 20:30 Clonidine (Catapres) 0.1 mg Q6H PRN PO SBP> OR = 180, DBP> OR = 100 Last administered on 01/09/17 00:48; Start 01/05/17 at 17:45 Enoxaparin Sodium (Lovenox Inj) 40 mg Q24H SQ Last administered on 01/08/17 21:07; Start 01/06/17 at 20:00 Flumazenil (Romazicon Inj) 0.2 mg Q1M PRN IV PUSH SEE LABEL COMMENTS; Start at 21:30 Influenza Virus Vaccine (Flu (Quadrivalent) Vaccine Inj) 0.5 ml ONCE ONCE IM Last administered on 01/06/17 09:26; Start 01/06/17 at 09:00; Stop 01/06/17 at 09:01; Status DC Insulin Aspart (NovoLOG SUPPLEMENTAL SCALE) 1 ACHS SLIDING SCALE SQ Last administered on 01/08/17 21:08; Start 01/07/17 at 22:30 Lactobacillus Acidophilus (Lactinex Pkt) 1 gm TID PO Last administered on 01/09 09:01; Start 01/08/17 at 13:00 Lactulose (Lactulose Liq) 30 ml DAILY PRN PO SEVERE CONSITIPATION; Start 01/05 at 17:45 Levofloxacin (Levaquin) 750 mg DAILY@1700 PO Last administered on 01/08/17 18 :01; Start 01/07/17 at 17:00 Lorazepam (Ativan Inj) 2 mg Q15M PRN IV PUSH CIWA > 20; Start 01/05/17 at 21: 30 Lorazepam (Ativan) 2 mg Q2H PRN PO CIWA 11-14; Start 01/05/17 at 21:30 Magnesium Hydroxide (Milk Of Magnesia Liq) 30 ml Q12H PRN PO Mild constipation ; Start 01/05/17 at 17:45 Methylprednisolone Sodium Succinate (SoluMEDROL INJ) 40 mg BID IV PUSH Last administered on 01/09/17 09:02; Start 01/07/17 at 21:00 Miscellaneous Information SPECIFIC LAB TO BE DRAWN:VANCO TROUGH DATE TO BE DRHaris. ONCE ONCE .XX ; Start 01/07/17 at 14:45; Stop 01/07/17 at 14:45; Status DC Morphine Sulfate (Morphine Inj) 2 mg Q3H PRN IV BREAKTHROUGH PAIN Last administered on 01/09/17 02:29; Start 01/05/17 at 21:15 Naloxone HCl (Narcan Inj) 0.4 mg UNSCH PRN IV PUSH SEE LABEL COMMENTS; Start 01/05/17 at 17:45 Ondansetron HCl (Zofran Inj) 4 mg Q6H PRN IVP NAUSEA OR VOMITING; Start at 17:45 Oxycodone/ Acetaminophen (Percocet 7.5-325 Mg) 1 tab Q6H PO Last administered on 01/09/17 11:06; Start 01/06/17 at 11:00 Oxycodone/ Acetaminophen (Percocet 10-325 Mg) 2 tab Q6H PRN PO PAIN 6-10; Start 01/05/17 at 18:15 Pantoprazole Sodium (Protonix) 40 mg DAILY PO Last administered on 01/09/17 09:01; Start 01/05/17 at 21:45 Pharmacy Profile Note 0 ml @ 0 mls/hr UNSCH OTHER ; Start 01/06/17 at 16:15; Stop 01/07/17 at 16:53; Status DC Piperacillin Sod/ Tazobactam Sod 100 ml @ 200 mls/hr Q6H IV Last administered on 01/07/17 11:34; Start 01/05/17 at 23:00; Stop 01/07/17 at 16:53; Status DC Pneumococcal Polyvalent Vaccine (Pneumovax-23 Inj) 25 mcg ONCE ONCE IM Last administered on 01/06/17 09:25; Start 01/06/17 at 09:00; Stop 01/06/17 at 09 :01; Status DC Senna/Docusate Sodium (Teetee-Colace) 1 tab BID PO Last administered on 09:01; Start 01/06/17 at 11:00 Sennosides (Senokot) 17.2 mg Q12H PRN PO Moderate constipation; Start at 17:45 Sodium Chloride (NS Flush) 2 ml BID IV FLUSH Last administered on 01/09/17 09 :02; Start 01/06/17 at 09:00 Vancomycin HCl 1000 mg/Sodium Chloride 250 ml @ 250 mls/hr Q12H IV Last administered on 01/06/17 15:16; Start 01/06/17 at 03:00; Stop 01/07/17 at 01 :59; Status DC Vancomycin HCl 1500 mg/Sodium Chloride 515 ml @ 257.5 mls/ hr Q12H IV ; Start 01/07/17 at 03:00; Stop 01/07/17 at 03:00; Status DC (Jerrica Purcell MD R2) Urinary Catheter: No (Jerrica Purcell MD R2) Vascular Central Line Catheter: No (Jerrica Purcell MD R2) A/P Assessment and Plan Mr. Jones is a 31-year-old male, with past medical history of diabetes, presenting with worsening shortness of breath and right-sided chest pain. CTA of chest showed diffuse fluffy alveolar infiltrates most prominent at the lower lobes. Differential diagnosis included pneumonia, PE, aspiration pneumonitis, septic emboli, but workup negative. He was admitted to ICU but transfer to [facility] 01/07. He met sepsis criteria on admission, resolved. Clinically improving and being treated for pneumonia. Discharge Planning Possible discharge to home 1-2 days. Requires further inpatient monitoring and to continue IV antibiotics, steroids until cultures result Pulmonology following, appreciate recommendations Infectious Disease following, appreciate recommendations (Jerrica Purcell MD R2) Attending Attestation Patient seen and examined. Case reviewed and discussed with the resident team. Agree with plan of care as discussed with me and documented in the resident note. (Miranda Perez MD) Problem List: (1) Pneumonia ICD Codes: J18.9 - Pneumonia, unspecified organism Status: Acute Plan: CTA showed diffuse fluffy alveolar infiltrates most prominent in the lower lobes but there is involvement of the upper lobes as well with relative sparing of the apices. Diagnostic considerations include an unusual type use pneumonic infiltrate versus pneumonitis. No associated effusions. No pulmonary embolism noted on CTA. An addendum to the CT angiography showed: "The central lobar distribution of the infiltrate may also represent entity such as pulmonary hemorrhage secondary to vasculitis." -ABX as above -Supportive therapy with supplemental oxygen O2 sats > 90% -Duonebs Q6 hours scheduled -Urine legionella and pneumococcal Ag PCRs. -Consult pulmonology given the possibility of an alveolar hemorrhage as noted on CT: added Solu-Medrol 40mg q8hr on 01/06, downgraded to 40mg IV q12hr 01/07 -Bumex 1mg IV x 1 given per Pulmonology 01/09 due to increased pulmonary congestion on CXR (2) Sepsis ICD Codes: A41.9 - Sepsis, unspecified organism Status: Resolved Plan: Patient no longer meets sepsis criteria at this time. Hospital course: Criteria for severe sepsis met on admission. Heart rate 135, RR 25, lactic acid 2.5. Labile BP is noted. Vital signs have stabilized. Source: Possible bacteremia, endocarditis, atypical pneumonia, pneumonitis. Clinical picture suggestive of Legionella but Legionella antigen negative. Plan: -Status post 2 L bolus in ED, continue fluids at 1.5 maintenance NS -Broad-spectrum antibiotics: Vancomycin with dosing per pharmacy, Zosyn 4.5 g every 6, azithromycin 500 mg by mouth (01/04 -01/07) -Levaquin 750mg po qD (01/07- ) -Blood cultures 2 negative so far. Fungal culture pending. Sputum culture negative. -Consult infectious disease. We appreciate their expertise. (3) Elevated troponin ICD Codes: R74.8 - Abnormal levels of other serum enzymes Status: Resolved Plan: Resolved Hospital Course: Troponin on admission was 0.18 --> 0.30-->0.24 -->0.16 EKG showed normal sinus rhythm on admission, with no ST segment elevations or depressions. No Q waves. And no T-wave inversions. Suspect demand ischemia from underlying sepsis. If Troponin increases or there are signs of ischemia on EKG, will consult cardiology and treat for ACS. 2D echo normal, EF 55-60% (4) Lactic acidosis ICD Codes: E87.2 - Acidosis Status: Resolved Plan: Lactic acid decreased from 2.5 --> 2.2--> 1.5 (5) Hepatitis C antibody test positive ICD Codes: R76.8 - Other specified abnormal immunological findings in serum Status: Acute Plan: Hepatitis C antibody test reactive. Likely due to his IV drug use. * Will inform patient after getting results of RNA quant and genotype (6) IVDU (intravenous drug user) ICD Codes: F19.90 - Other psychoactive substance use, unspecified, uncomplicated Plan: CIWA protocol. Work up for endocarditis as above. Echo negative. Blood cultures x 2. HIV and Hepatitis profile * HIV negative * Hep C Ab reactive- see above. Sputum for AFB. UDS positive for cocaine (7) Type 2 diabetes mellitus ICD Codes: E11.9 - Type 2 diabetes mellitus without complications Status: Chronic Plan: Patient on metformin as outpatient, will continue to monitor glucose and will hold metformin at this time. * Blood sugars have increased since starting Solumedrol * Started low dose sliding scale insulin on 01/07 (8) Nutrition, metabolism, and development symptoms ICD Codes: R63.8 - Other symptoms and signs concerning food and fluid intake Plan: Nutrition: reg diet IVF: above DVT ppx: 40mg Lovenox SQ daily GI ppx: 40mg pantoprazole PO daily (Jerrica Purcell MD R2) Problem Qualifiers (1) Pneumonia: Qualified Codes: J18.9 - Pneumonia, unspecified organism (2) Sepsis: Qualified Codes: A41.9 - Sepsis, unspecified organism Jerrica Purcell MD R2 Jan 09, 2017 10:13 Miranda Perez MD Jan 09, 2017 16:42
--- NOTE | 2017-01-09 10:48 | HHI.PR ---
Subjective Remarks No events overnight. On room air oxygen. CXR today showed mild increase interstitial markings. Afebrile. Objective Vital Signs Vital Signs Date Time Temp Pulse Resp B/P (MAP) Pulse Ox O2 Delivery O2 Flow Rate FiO2 01/09/17 08:15 98 01/09/17 08:00 97.8 53 20 158/93 (114) 98 01/09/17 00:00 98.3 72 18 168/100 (122) 98 01/08/17 20:00 Room Air 01/08/17 20:00 78 01/08/17 20:00 98.9 75 18 162/90 (114) 98 01/08/17 19:51 99 21 01/08/17 16:00 98.4 68 18 153/79 (103) 97 01/08/17 12:00 98.4 67 18 141/72 (95) 99 I/O 01/08/17 01/08/17 01/08/17 01/09/17 01/09/17 01/09/17 07:00 15:00 23:00 07:00 15:00 23:00 Intake Total 480 ml 1920 ml Output Total 600 ml Balance -120 ml 1920 ml Intake Oral 480 ml 1920 ml Output Urine Total 600 ml # Voids 4 # Bowel Movements 0 Result Diagram: 01/07/17 1810 01/07/17 1810 Other Results Last Impressions Chest X-Ray 01/08/17 0000 Signed Impressions: Service Date/Time: Sunday, January 08, 2017 11:29 - CONCLUSION: 1. Improved aeration of lungs bilaterally with minimal residual pulmonary infiltrate/vascular congestion noted. 2. Minimal cardiomegaly. Gary Zhou MD CT Angiography 01/05/17 1354 Signed Impressions: Service Date/Time: Thursday, January 05, 2017 15:47 - CONCLUSION: 1. Diffuse , fluffy alveolar infiltrates most prominent in the lower lobes but there is involvement of the upper lobes as well with relative sparing of the apices. Diagnostic considerations include an unusual, diffuse pneumonic infiltrate versus pneumonitis. No associated effusions. 2. No pulmonary embolus. Thomas Perez MD ADDENDUM: The central lobar distribution of the infiltrate may also represent entities such as pulmonary hemorrhage secondary to vasculitis Thomas Perez MD Objective Remarks GENERAL: SKIN: Warm and dry. HEAD: Normocephalic. EYES: No scleral icterus. No injection or drainage. NECK: Supple, trachea midline. No JVD or lymphadenopathy. CARDIOVASCULAR: Regular rate and rhythm without murmurs, gallops, or rubs. RESPIRATORY: Breath sounds equal bilaterally. No accessory muscle use. GASTROINTESTINAL: Abdomen soft, non-tender, nondistended. MUSCULOSKELETAL: No cyanosis, or edema. BACK: Nontender without obvious deformity. No CVA tenderness. Neuro: Awake and alert A/P Assessment and Plan 1)Resp Insuff 2)Diffuse b/l airspace disease ddx: Atypical pulm edema vs 2nd cocaine use vs infectious process 3)IVDU- Cocaine use 4)DM Plan Oxygen PRN keep sat >92% Bronchodilators, solumederol 40mg BID CXR today showed mild increase interstitial markings. Diurese with Bumex 1mg x1. Check BMP Continue with abx per ID ( Levaquin)monitor for signs of infections ( Fever, WBC ) Sputum cx, strep pneumonia and Legionella urinary Ag negative on 01/05 Echo showed EF 55-60% GI/DVT prophylaxis- on Protonix and Lovenox respectively. Ruby Bailey MD Jan 09, 2017 10:48
[2017-01-09] MEDS ORDERED: BUMETANIDE INJ 1 MG/4 ML VIAL IV PUSH ONE (11:00)
[2017-01-09 12:00] VITALS: BP 163/92; PULSE 68; RESP 20; TEMP 98.1; O2SAT 98
[2017-01-09 14:04] LABS: POTASSIUM 3.7 MEQ/L (3.5-5.1)
[2017-01-09] MEDS ORDERED: oxyCODONE/ACETAMINOPHEN 7.5 MG/325 MG TAB PO PRN (17:00)
[2017-01-09] MEDS: ENOXAPARIN SODIUM 40 MG/0.4 ML SYRINGE SQ SCH (19:12)
[2017-01-09] MEDS: LEVOFLOXACIN 750 MG TAB PO SCH (19:13)
[2017-01-09] MEDS: oxyCODONE/ACETAMINOPHEN 10 MG/325 MG TAB PO PRN (19:13)
[2017-01-09 19:20] VITALS: O2SAT 98
[2017-01-09 20:00] VITALS: BP 166/92; PULSE 106; PULSE 69; RESP 21; TEMP 98.2; O2SAT 98
[2017-01-10] VITALS: BP 158/96; PULSE 73; RESP 18; TEMP 98.4; O2SAT 95
[2017-01-10 04:00] VITALS: BP 152/64; PULSE 82; RESP 17; TEMP 98.2; O2SAT 96
[2017-01-10] MEDS: oxyCODONE/ACETAMINOPHEN 10 MG/325 MG TAB PO PRN ×2 (05:16→11:38)
[2017-01-10 07:10] LABS: AUTOMATED NEUTROPHIL # 5.7 TH/MM3 (1.8-7.7); BASOPHIL % 0.1 % (0.0-2.0); LYMPH % 14.3 % (9.0-44.0); MEAN CELL VOLUME 84.1 FL (80.0-100.0); MEAN CORPUSCULAR HEMOGLOBIN 28.6 PG (27.0-34.0); MONO % 7.7 % (0.0-8.0); NEUT % 77.9 % (16.0-70.0); PLATELET COUNT 265 TH/MM3 (150-450); RED BLOOD COUNT 5.12 MIL/MM3 (4.50-5.90); RED CELL DISTRIBUTION WIDTH 13.9 % (11.6-17.2); WHITE BLOOD COUNT 7.3 TH/MM3 (4.0-11.0)
[2017-01-10 07:13] LABS: HEMO FLAGS AUTO DIFF
[2017-01-10 07:34] LABS: ANION GAP 7 MEQ/L (5-15); AST (GOT) 10 U/L (15-37); BICARBONATE 31.4 MEQ/L (21.0-32.0); BLOOD UREA NITROGEN 14 MG/DL (7-18); CHLORIDE 100 MEQ/L (98-107); GLOMERULAR FILTRATION RATE 79 ML/MIN (>89); POTASSIUM 4.1 MEQ/L (3.5-5.1); SODIUM (NA) 138 MEQ/L (136-145)
[2017-01-10 07:38] LABS: ALKALINE PHOSPHATASE 54 U/L (45-117); ALT (GPT) 45 U/L (12-78); TOTAL BILIRUBIN ADULT 0.7 MG/DL (0.2-1.0)
[2017-01-10 08:00] VITALS: PULSE 58
[2017-01-10 08:01] VITALS: BP 159/86; PULSE 57; RESP 17; TEMP 98; O2SAT 98
[2017-01-10] MEDS: RESP: ALBUTEROL 2.5 MG/IPRATROPIUM 0.5 MG NEB (SCH) NEB (08:09)
[2017-01-10 08:11] VITALS: O2SAT 100
[2017-01-10 08:36] LABS: BANDS 7 % (0-6); MYELOCYTES 6 % (0-0); NEUTROPHIL # MANUAL DIFF 5.7 TH/MM3 (1.8-7.7); PLATELET ESTIMATE SMEAR NORMAL (NORMAL); PLATELET MORPHOLOGY NORMAL (NORMAL); POLYS (SEG NEUTROPHILS) 65 % (16-70); SCAN/DIFF FINAL DIFF MANUAL; WBC DIFF SAMPLE 100
[2017-01-10] MEDS: MORPHINE SULFATE 2 MG/ML INJ IV PRN ×2 (08:49→14:33)
[2017-01-10] MEDS: DOCUSATE SODIUM 50 MG/SENNA 8.6 MG TAB PO SCH (08:50)
[2017-01-10] MEDS: SODIUM CHLORIDE 0.9% FLUSH 10 ML FLUSH IV FLUSH SCH (08:50)
[2017-01-10] MEDS: methylPREDNISolone SOD SUCC 40 MG/1 ML VIAL IV PUSH SCH (08:50)
[2017-01-10] MEDS: PANTOPRAZOLE SOD 40 MG DELAYED RELEASE TAB PO SCH (08:51)
[2017-01-10] MEDS: INSULIN ASPART SUPPLEMENTAL SCALE SQ SCH ×3 (08:52→16:32)
--- NOTE | 2017-01-10 10:33 | RADRPT ---
EXAM DATE/TIME: 01/10/2017 09:53 [facility] COMPARISON: CT PULMONARY ANGIOGRAM, January 05, 2017, 15:47. INDICATIONS : Shortness of breath. RADIATION DOSE: 6.19 CTDIvol (mGy) MEDICAL HISTORY : None SURGICAL HISTORY : None. ENCOUNTER: Initial ACUITY: 1 day PAIN SCALE: 10/10 LOCATION: Bilateral chest TECHNIQUE: Volumetric scanning of the chest was performed. Using automated exposure control and adjustment of t he mA and/or kV according to patient size, radiation dose was kept as low as reasonably achievable to obtain optimal diagnostic quality images. DICOM format image data is available electronically for r eview and comparison. Follow-up recommendations for detected pulmonary nodules are based at a minimum on nodule size and pa tient risk factors according to Fleischner Society Guidelines. FINDINGS: LUNGS: Minimal interstitial prominence is present worse in both lung base is. There are no areas of parench ymal opacity. There is no axillary or mediastinal adenopathy. There is no significant pleural effusion. Trace pericardial effusion is evident. Minimal gallstones are evident. CONCLUSION: Significant improvement when compared to 01/05/17. Minimal residual vascular airspace disease is malena dent. Minimal pericardial effusion. Small gallstones. Amado Navarro MD FACR on January 10, 2017 at 10:28 Board Certified Radiologist. This report was verified electronically.
--- NOTE | 2017-01-10 11:13 | HHI.FPPN ---
Subjective Remarks "Feeing the same way I have for the past 3 days" Minimal cough. No fever. Painful to take deep breath. (Cameron Ruby MD, R3) Objective Vitals Vital Signs Date Time Temp Pulse Resp B/P (MAP) Pulse Ox O2 Delivery O2 Flow Rate FiO2 01/10/17 08:11 100 01/10/17 08:01 98.0 57 17 159/86 (110) 98 01/10/17 04:00 98.2 82 17 152/64 (93) 96 01/10/17 00:00 98.4 73 18 158/96 (116) 95 01/09/17 20:00 Room Air 01/09/17 20:00 98.2 69 21 166/92 (116) 98 01/09/17 20:00 106 01/09/17 19:20 98 21 01/09/17 12:00 98.1 68 20 163/92 (115) 98 I/O 01/09/17 01/09/17 01/09/17 01/10/17 01/10/17 01/10/17 07:00 15:00 23:00 07:00 15:00 23:00 Intake Total 480 ml 420 ml Output Total 750 ml Balance 480 ml -330 ml Intake Oral 480 ml 420 ml Output Urine Total 750 ml # Voids 4 3 # Bowel Movements 0 (Cameron Ruby MD, R3) Result Diagram: 01/10/17 0605 01/10/17 0605 Imaging Last [address] 01/10/17 0000 Signed Impressions: Service Date/Time: Tuesday, January 10, 2017 09:53 - CONCLUSION: Significant improvement when compared to 01/05/17. Minimal residual vascular airspace disease is evident. Minimal pericardial effusion. Small gallstones. Amado Navarro MD FACR Chest X-Ray 01/09/17 0800 Signed Impressions: Service Date/Time: Monday, January 09, 2017 08:34 - CONCLUSION: 1. Mild increased interstitial markings bilaterally suggestive of mild pulmonary vascular congestion or pneumonitis. Clinical correlation is recommended. 2. Cardiomegaly. Gary Zhou MD Chest X-Ray 01/08/17 0000 Signed Impressions: Service Date/Time: Sunday, January 08, 2017 11:29 - CONCLUSION: 1. Improved aeration of lungs bilaterally with minimal residual pulmonary infiltrate/vascular congestion noted. 2. Minimal cardiomegaly. Gary Zhou MD Objective Remarks GENERAL: Obese male sitting in bed, appears comfortable, no acute distress. SKIN: Warm and dry. No rashes or ecchymoses noted. Tattoos noted on the skin. HEAD: Atraumatic. Normocephalic. EYES: Pupils equal and round. No scleral icterus. No injection or drainage. ENT: No nasal bleeding or discharge. Mucous membranes pink and moist. NECK: Trachea midline. No JVD. CARDIOVASCULAR: Regular rate and rhythm. No murmurs on auscultation. RESPIRATORY: No accessory muscle use. Clear to auscultation with no crackles or wheezes. Breath sounds equal bilaterally. GASTROINTESTINAL: Abdomen soft, non-tender, obese, normal bowel sounds. Hepatic and splenic margins not palpable. MUSCULOSKELETAL: Extremities without clubbing, cyanosis, or edema. No obvious deformities. Extremities with 2+ pulses, no cyanosis edema. No splinter hemorrhages. Right lower back tenderness to palpation. NEUROLOGICAL: Awake and alert. No obvious cranial nerve deficits. Motor grossly within normal limits. Normal speech. PSYCHIATRIC: Appropriate mood and affect; insight and judgment normal. (Cameron Ruby MD, R3) A/P Assessment and Plan Mr. Jones is a 31-year-old male, with past medical history of diabetes, presenting with worsening shortness of breath and right-sided chest pain. CTA of chest showed diffuse fluffy alveolar infiltrates most prominent at the lower lobes. Differential diagnosis included pneumonia, PE, aspiration pneumonitis, septic emboli, but workup negative. He was admitted to ICU but transfer to [facility] 01/07. He met sepsis criteria on admission, resolved. Clinically improving and being treated for pneumonia. Discharge Planning Possible discharge to home 1-2 days. Requires further inpatient monitoring and to continue IV antibiotics, steroids until cultures result Pulmonology following, appreciate recommendations Infectious Disease following, appreciate recommendations (Cameron Ruby MD, R3) Attending Attestation Patient seen and examined. Case reviewed and discussed with the resident team. Agree with plan of care as discussed with me and documented in the resident note. (Miranda Perez MD) Problem List: (1) Pneumonia ICD Codes: J18.9 - Pneumonia, unspecified organism Status: Acute Plan: CTA showed diffuse fluffy alveolar infiltrates most prominent in the lower lobes but there is involvement of the upper lobes as well with relative sparing of the apices. Diagnostic considerations include an unusual type use pneumonic infiltrate versus pneumonitis. No associated effusions. No pulmonary embolism noted on CTA. An addendum to the CT angiography showed: "The central lobar distribution of the infiltrate may also represent entity such as pulmonary hemorrhage secondary to vasculitis." -ABX as above, will d/c upon discharge. -Supportive therapy with supplemental oxygen O2 sats > 90% -Duonebs Q6 hours scheduled -Urine legionella and pneumococcal Ag PCRs negative. -Consult pulmonology, appreciate recommendation. Presentation consistent with cocaine induced pneumonitis. Repeat CT today showing significant improvement compared to 01/05/2017. -Bumex 1mg IV x 1 given per Pulmonology 01/09 due to increased pulmonary congestion on CXR. (2) Sepsis ICD Codes: A41.9 - Sepsis, unspecified organism Status: Resolved Plan: Patient no longer meets sepsis criteria at this time. Hospital course: Criteria for severe sepsis met on admission. Heart rate 135, RR 25, lactic acid 2.5. Labile BP is noted. Vital signs have stabilized. Source: Possible bacteremia, endocarditis, atypical pneumonia, pneumonitis. Clinical picture suggestive of Legionella but Legionella antigen negative. Plan: -Status post 2 L bolus in ED, continue fluids at 1.5 maintenance NS -Broad-spectrum antibiotics: Vancomycin with dosing per pharmacy, Zosyn 4.5 g every 6, azithromycin 500 mg by mouth (01/04 -01/07) -Levaquin 750mg po qD (01/07- 01/10) -Blood cultures 2 negative so far. Fungal culture pending. Sputum culture negative. -Consult infectious disease. We appreciate their expertise. (3) Elevated troponin ICD Codes: R74.8 - Abnormal levels of other serum enzymes Status: Resolved Plan: Resolved Hospital Course: Troponin on admission was 0.18 --> 0.30-->0.24 -->0.16 EKG showed normal sinus rhythm on admission, with no ST segment elevations or depressions. No Q waves. And no T-wave inversions. Suspect demand ischemia from underlying sepsis. If Troponin increases or there are signs of ischemia on EKG, will consult cardiology and treat for ACS. 2D echo normal, EF 55-60% (4) Lactic acidosis ICD Codes: E87.2 - Acidosis Status: Resolved Plan: Lactic acid decreased from 2.5 --> 2.2--> 1.5 (5) Hepatitis C antibody test positive ICD Codes: R76.8 - Other specified abnormal immunological findings in serum Status: Acute Plan: Hepatitis C antibody test reactive. Likely due to his IV drug use. * Will inform patient after getting results of RNA quant and genotype (6) IVDU (intravenous drug user) ICD Codes: F19.90 - Other psychoactive substance use, unspecified, uncomplicated Plan: [place] protocol. Work up for endocarditis as above. Echo negative. Blood cultures x 2. HIV and Hepatitis profile * HIV negative * Hep C Ab reactive- see above. Sputum for AFB. UDS positive for cocaine (7) Type 2 diabetes mellitus ICD Codes: E11.9 - Type 2 diabetes mellitus without complications Status: Chronic Plan: Patient on metformin as outpatient, will continue to monitor glucose and will hold metformin at this time. * Blood sugars have increased since starting Solumedrol * Started low dose sliding scale insulin on 01/07 (8) Nutrition, metabolism, and development symptoms ICD Codes: R63.8 - Other symptoms and signs concerning food and fluid intake Plan: Nutrition: reg diet IVF: above DVT ppx: 40mg Lovenox SQ daily GI ppx: 40mg pantoprazole PO daily Dispo: Sepsis resolved. Lung disease significantly improved on repeat CT scan. Respiratory status and vitals are at goal x past 24 hours. Blood cultures negative throughout hospitalization. D/c home 01/10. Advised against IV cocaine. SDW Dr. Miranda Perez, Dr. Selena Moffett. (Cameron Ruby MD, R3) Problem Qualifiers (1) Pneumonia: Qualified Codes: J18.9 - Pneumonia, unspecified organism (2) Sepsis: Qualified Codes: A41.9 - Sepsis, unspecified organism Cameron Ruby MD, R3 Jan 10, 2017 11:13 Miranda Perez MD Jan 10, 2017 14:36
--- NOTE | 2017-01-10 11:22 | HHI.DCPOC ---
Discharge Care Plan Diagnosis: (1) Hepatitis C antibody test positive (2) Sepsis (3) Pneumonia Goals to Promote Your Health * To prevent worsening of your condition and complications * To maintain your health at the optimal level Directions to Meet Your Goals Take your medications as prescribed Follow your dietary instruction Follow activity as directed Keep your appointments as scheduled Take your immunizations and boosters as scheduled If your symptoms worsen call your PCP, if no PCP go to Urgent Care Center or Emergency Room Smoking is Dangerous to Your Health. Avoid second hand smoke Call the 24-hour hour crisis hotline for domestic abuse at Cameron Ruby MD, R3 Jan 10, 2017 11:22
[2017-01-10] MEDS ORDERED: LEVA750T9 PO (11:27)
[2017-01-10] MEDS ORDERED: BENZ100 PO (11:27)
[2017-01-10] MEDS ORDERED: OXYC1TAB35 PO (11:27)
[2017-01-10] MEDS ORDERED: POLYETHYLENE GLYCOL 17 GM PKG PO ONE (11:30)
[2017-01-10] MEDS ORDERED: NORC5TAB PO (11:57)
[2017-01-10] MEDS: LACTOBACILLUS ACIDOPHILUS 1 GM PACKET PO SCH (12:20)
[2017-01-10 12:23] VITALS: BP 126/71; PULSE 108; RESP 17; TEMP 97.9; O2SAT 97
[2017-01-10] MEDS ORDERED: RESP: ALBUTEROL 2.5 MG/IPRATROPIUM 0.5 MG NEB (SCH) NEB (14:00)
--- NOTE | 2017-01-10 14:10 | HHI.DS ---
Discharge Summary Admission Date Jan 05, 2017 at 17:01 Admitting Diagnosis sepsis/bilateral pneumonia/elevated troponin (1) Pneumonia Plan: CTA showed diffuse fluffy alveolar infiltrates most prominent in the lower lobes but there is involvement of the upper lobes as well with relative sparing of the apices. Diagnostic considerations include an unusual type use pneumonic infiltrate versus pneumonitis. No associated effusions. No pulmonary embolism noted on CTA. An addendum to the CT angiography showed: "The central lobar distribution of the infiltrate may also represent entity such as pulmonary hemorrhage secondary to vasculitis." -ABX as above, will d/c upon discharge. -Supportive therapy with supplemental oxygen O2 sats > 90% -Duonebs Q6 hours scheduled -Urine legionella and pneumococcal Ag PCRs negative. -Consult pulmonology, appreciate recommendation. Presentation consistent with cocaine induced pneumonitis. Repeat CT today showing significant improvement compared to 01/05/2017. -Bumex 1mg IV x 1 given per Pulmonology 01/09 due to increased pulmonary congestion on CXR. ICD Codes: J18.9 - Pneumonia, unspecified organism Status: Acute (2) Sepsis Plan: Patient no longer meets sepsis criteria at this time. Hospital course: Criteria for severe sepsis met on admission. Heart rate 135, RR 25, lactic acid 2.5. Labile BP is noted. Vital signs have stabilized. Source: Possible bacteremia, endocarditis, atypical pneumonia, pneumonitis. Clinical picture suggestive of Legionella but Legionella antigen negative. Plan: -Status post 2 L bolus in ED, continue fluids at 1.5 maintenance NS -Broad-spectrum antibiotics: Vancomycin with dosing per pharmacy, Zosyn 4.5 g every 6, azithromycin 500 mg by mouth (01/04 -01/07) -Levaquin 750mg po qD (01/07- 01/10) -Blood cultures 2 negative so far. Fungal culture pending. Sputum culture negative. -Consult infectious disease. We appreciate their expertise. ICD Codes: A41.9 - Sepsis, unspecified organism Status: Resolved (3) Elevated troponin Plan: Resolved Hospital Course: Troponin on admission was 0.18 --> 0.30-->0.24 -->0.16 EKG showed normal sinus rhythm on admission, with no ST segment elevations or depressions. No Q waves. And no T-wave inversions. Suspect demand ischemia from underlying sepsis. If Troponin increases or there are signs of ischemia on EKG, will consult cardiology and treat for ACS. 2D echo normal, EF 55-60% ICD Codes: R74.8 - Abnormal levels of other serum enzymes Status: Resolved (4) Lactic acidosis Plan: Lactic acid decreased from 2.5 --> 2.2--> 1.5 ICD Codes: E87.2 - Acidosis Status: Resolved (5) Hepatitis C antibody test positive Plan: Hepatitis C antibody test reactive. Likely due to his IV drug use. * Will inform patient after getting results of RNA quant and genotype ICD Codes: R76.8 - Other specified abnormal immunological findings in serum Status: Acute (6) IVDU (intravenous drug user) Plan: CIWA protocol. Work up for endocarditis as above. Echo negative. Blood cultures x 2. HIV and Hepatitis profile * HIV negative * Hep C Ab reactive- see above. Sputum for AFB. UDS positive for cocaine ICD Codes: F19.90 - Other psychoactive substance use, unspecified, uncomplicated (7) Type 2 diabetes mellitus Plan: Patient on metformin as outpatient, will continue to monitor glucose and will hold metformin at this time. * Blood sugars have increased since starting Solumedrol * Started low dose sliding scale insulin on 01/07 ICD Codes: E11.9 - Type 2 diabetes mellitus without complications Status: Chronic (8) Nutrition, metabolism, and development symptoms Plan: Nutrition: reg diet IVF: above DVT ppx: 40mg Lovenox SQ daily GI ppx: 40mg pantoprazole PO daily Dispo: Sepsis resolved. Lung disease significantly improved on repeat CT scan. Respiratory status and vitals are at goal x past 24 hours. Blood cultures negative throughout hospitalization. D/c home 01/10. Advised against IV cocaine. SDW Dr. Miranda Perez, Dr. Selena Moffett. ICD Codes: R63.8 - Other symptoms and signs concerning food and fluid intake Brief History Mr. Jones is a 31-year-old male, who presents with right-sided chest pain, shortness of breath, and productive sputum 3 days. Vernon reports gradual onset of right sided chest wall pain over the past several days. The pain is described as a sharp, stabbing pain, that is a 10 out of 10, and radiates to his lower back. Taking a deep breath makes his pain worse. He also reports that over the past 2-3 days he has been having night sweats, fevers, and chills. In addition to the symptoms, he also reports a productive sputum, that is brown colored. He brings up several tablespoons daily. He denies any blood in the sputum. He denies a history of blood clots. He denies currently having any left-sided, or central chest pain. He denies any radiation of the pain into his left arm, jaw, or chest pain associated with exertion. The patient does admit to remodeling a house recently, and has not been able to wear his mask because the mask fogs his glasses. He does not know if he was exposed to anybody with tuberculosis, denies being in a correction/ present/was fpc. He denies inhaling any foreign drugs, except for marijuana several days ago. To note, he also injected IV cocaine 8 days ago. Review of systems: He also reports left knee numbness, and inability to bear weight on this leg that is new over the past 24 hours. Headaches, frontal temporal, worse with coughing. Nausea + CBC/BMP: 01/10/17 0605 01/10/17 0605 Significant Findings Laboratory Tests Test 01/07/17 18:10 01/08/17 10:52 01/08/17 13:15 01/09/17 12:31 Red Blood Count 4.27 MIL/MM3 (4.50-5.90) Hemoglobin 12.4 GM/DL (13.0-17.0) Hematocrit 36.1 % (39.0-51.0) Neutrophils (%) (Auto) 86.1 % (16.0-70.0) Lymphocytes (%) (Auto) 8.6 % (9.0-44.0) Lymphocytes # (Auto) 0.5 TH/MM3 (1.0-4.8) Random Glucose 291 MG/DL (74-106) 265 MG/DL (74-106) Total Protein 6.3 GM/DL (6.4-8.2) Albumin 2.7 GM/DL (3.4-5.0) Calcium Level 8.4 MG/DL (8.5-10.1) Phosphorus Level 1.8 MG/DL (2.5-4.9) Estimat Glomerular Filtration Rate 76 ML/MIN (>89) 80 ML/MIN (>89) Creatine Kinase MB 3.8 NG/ML (0.5-3.6) Test 01/10/17 06:05 Neutrophils (%) (Auto) 77.9 % (16.0-70.0) Band Neutrophils % 7 % (0-6) Monocytes % 9 % (0-8) Myelocytes 6 % (0-0) Random Glucose 169 MG/DL (74-106) Albumin 3.2 GM/DL (3.4-5.0) Aspartate Amino Transf (AST/SGOT) 10 U/L (15-37) Estimat Glomerular Filtration Rate 79 ML/MIN (>89) PE at Discharge GENERAL: Obese male sitting in bed, appears comfortable, no acute distress. SKIN: Warm and dry. No rashes or ecchymoses noted. Tattoos noted on the skin. HEAD: Atraumatic. Normocephalic. EYES: Pupils equal and round. No scleral icterus. No injection or drainage. ENT: No nasal bleeding or discharge. Mucous membranes pink and moist. NECK: Trachea midline. No JVD. CARDIOVASCULAR: Regular rate and rhythm. No murmurs on auscultation. RESPIRATORY: No accessory muscle use. Clear to auscultation with no crackles or wheezes. Breath sounds equal bilaterally. GASTROINTESTINAL: Abdomen soft, non-tender, obese, normal bowel sounds. Hepatic and splenic margins not palpable. MUSCULOSKELETAL: Extremities without clubbing, cyanosis, or edema. No obvious deformities. Extremities with 2+ pulses, no cyanosis edema. No splinter hemorrhages. Right lower back tenderness to palpation. NEUROLOGICAL: Awake and alert. No obvious cranial nerve deficits. Motor grossly within normal limits. Normal speech. PSYCHIATRIC: Appropriate mood and affect; insight and judgment normal. Hospital Course Patient is a 31-year-old male, who presented to [place] emergency department with severe sepsis and signs of end organ damage. He was diagnosed with bilateral pneumonia versus cocaine induced pneumonitis. He was given IV fluids , IV antibiotics, IV steroids, and improved within 24 hours. His troponins were elevated to 3.0, and trended down the hospitalization, likely related to demand ischemia. His lactic acid also corrected. Initial imaging showed diffuse fluffy alveolar infiltrates most prominent in the lower lobes, pulmonary hemorrhage secondary to vasculitis cannot be ruled out. Pulmonology and infectious disease were consulted, and the patient continued to do well during his hospitalization. Lab work revealed hepatitis C antibody positive, and RNA genotyping was followed. The patient continues to do well during his hospitalization, and a repeat CT scan on day of discharge revealed significant improvement in parenchymal disease. Pt Condition on Discharge: Good Discharge Disposition: Discharge Home Discharge Instructions DIET: Follow Instructions for: As Tolerated, No Restrictions Activities you can perform: Regular-No Restrictions New Medications: Benzonatate (Tessalon Perles) 100 Mg Cap 200 MG PO TID PRN for COUGH, #30 CAP 0 Refills Hydrocodone-Acetaminophen ([place]gal) 5-325 mg Tab 1 TAB PO Q6H PRN for PAIN, #15 TAB 0 Refills Levofloxacin (Levaquin) 750 Mg Tablet 750 MG PO DAILY@1700, #4 TAB 0 Refills Oxycodone-Acetaminophen (Oxycodone-Acetaminophen) 7.5-325 mg Tab 1 TAB PO Q6H PRN for PAIN 1-5, #25 TAB Continued Medications: Metformin (Metformin) 500 Mg Tab 500 MG PO BIDPC for Blood Sugar Management, #60 TAB 0 Refills Omeprazole (Omeprazole) 20 Mg Tab 20 MG PO DAILY, #30 TAB 0 Refills Cameron Ruby MD, R3 Jan 10, 2017 14:10
--- NOTE | 2017-01-10 14:25 | HHI.IDPN ---
Subjective Subjective Remarks doing good On room air afebrile co pleuritic chest pain still Antibiotics levaquine Allergies: Coded Allergies: cephalexin (Verified Allergy, Unknown, 01/05/17) Objective . Vital Signs Date Time Temp Pulse Resp B/P (MAP) Pulse Ox O2 Delivery O2 Flow Rate FiO2 01/10/17 12:23 97.9 108 17 126/71 (89) 97 01/10/17 08:11 100 01/10/17 08:01 98.0 57 17 159/86 (110) 98 01/10/17 07:00 Room Air 01/10/17 04:00 98.2 82 17 152/64 (93) 96 01/10/17 00:00 98.4 73 18 158/96 (116) 95 01/09/17 20:00 Room Air 01/09/17 20:00 98.2 69 21 166/92 (116) 98 01/09/17 20:00 106 01/09/17 19:20 98 21 . Laboratory Tests Test 01/10/17 06:05 White Blood Count 7.3 TH/MM3 Red Blood Count 5.12 MIL/MM3 Hemoglobin 14.6 GM/DL Hematocrit 43.0 % Mean Corpuscular Volume 84.1 FL Mean Corpuscular Hemoglobin 28.6 PG Mean Corpuscular Hemoglobin Concent 34.0 % Red Cell Distribution Width 13.9 % Platelet Count 265 TH/MM3 Mean Platelet Volume 9.6 FL Neutrophils (%) (Auto) 77.9 % Lymphocytes (%) (Auto) 14.3 % Monocytes (%) (Auto) 7.7 % Eosinophils (%) (Auto) 0.0 % Basophils (%) (Auto) 0.1 % Neutrophils # (Auto) 5.7 TH/MM3 Lymphocytes # (Auto) 1.0 TH/MM3 Monocytes # (Auto) 0.6 TH/MM3 Eosinophils # (Auto) 0.0 TH/MM3 Basophils # (Auto) 0.0 TH/MM3 CBC Comment AUTO DIFF Differential Total Cells Counted 100 Neutrophils % (Manual) 65 % Band Neutrophils % 7 % Lymphocytes % 13 % Monocytes % 9 % Neutrophils # (Manual) 5.7 TH/MM3 Myelocytes 6 % Differential Comment FINAL DIFF MANUAL Platelet Estimate NORMAL Platelet Morphology Comment NORMAL Laboratory Tests Test 01/09/17 12:31 01/10/17 06:05 Blood Urea Nitrogen 15 MG/DL 14 MG/DL Creatinine 1.06 MG/DL 1.08 MG/DL Random Glucose 265 MG/DL 169 MG/DL Calcium Level 9.0 MG/DL 9.6 MG/DL Sodium Level 138 MEQ/L 138 MEQ/L Potassium Level 3.7 MEQ/L 4.1 MEQ/L Chloride Level 102 MEQ/L 100 MEQ/L Carbon Dioxide Level 27.0 MEQ/L 31.4 MEQ/L Anion Gap 9 MEQ/L 7 MEQ/L Estimat Glomerular Filtration Rate 80 ML/MIN 79 ML/MIN Total Protein 6.9 GM/DL Albumin 3.2 GM/DL Alkaline Phosphatase 54 U/L Aspartate Amino Transf (AST/SGOT) 10 U/L Alanine Aminotransferase (ALT/SGPT) 45 U/L Total Bilirubin 0.7 MG/DL Imaging Last Impressions Chest CT 01/10/17 0000 Signed Impressions: Service Date/Time: Tuesday, January 10, 2017 09:53 - CONCLUSION: Significant improvement when compared to 01/05/17. Minimal residual vascular airspace disease is evident. Minimal pericardial effusion. Small gallstones. Amado Navarro MD FACR Chest X-Ray 01/09/17 0800 Signed Impressions: Service Date/Time: Monday, January 09, 2017 08:34 - CONCLUSION: 1. Mild increased interstitial markings bilaterally suggestive of mild pulmonary vascular congestion or pneumonitis. Clinical correlation is recommended. 2. Cardiomegaly. Gary Zhou MD CT Angiography 01/05/17 1354 Signed Impressions: Service Date/Time: Thursday, January 05, 2017 15:47 - CONCLUSION: 1. Diffuse , fluffy alveolar infiltrates most prominent in the lower lobes but there is involvement of the upper lobes as well with relative sparing of the apices. Diagnostic considerations include an unusual, diffuse pneumonic infiltrate versus pneumonitis. No associated effusions. 2. No pulmonary embolus. Thomas Perez MD ADDENDUM: The central lobar distribution of the infiltrate may also represent entities such as pulmonary hemorrhage secondary to vasculitis Thomas Perez MD Physical Exam CONSTITUTIONAL/GENERAL: This is an obese patient, in no apparent distress. TUBES/LINES/DRAINS: SKIN: No jaundice, rashes, or lesions. Ecchymoses on upper extremities. No wounds seen anteriorly. Skin temperature appropriate. Not diaphoretic. CARDIOVASCULAR: Regular rate and rhythm without murmurs, gallops, or rubs. No JVD. Peripheral pulses symmetric. RESPIRATORY/CHEST: Symmetric, unlabored respirations. Clear to auscultation. Breath sounds equal bilaterally. No wheezes, rales, or rhonchi. GASTROINTESTINAL: Abdomen soft, non-tender, nondistended. No hepato-splenomegaly , or palpable masses. Bowel sounds present. GENITOURINARY: Without palpable bladder distension. MUSCULOSKELETAL: Extremities without clubbing, cyanosis, or edema. No joint tenderness or effusion noted. No calf tenderness. NEUROLOGICAL: Awake and alert. Motor and sensory grossly within normal limits. Follows commands. Clear speech. Moves all extremities. PSYCHIATRIC: calm, pleasant Assessment & Plan Remarks IVDU DM Multilobar pulmonary infiltrates , PNA vs non infectious pneumonitis - sputum with nl resp jordan - cleared infiltrates - improved clinically - favoring non infectious (cocain induced) Resp insufficiency - resolved Agree that likely cocain damage Cephalexin allergy dc levaquine Discussed Condition With pt Alexandria Haider MD Jan 10, 2017 14:25
[2017-01-10] MEDS: LEVOFLOXACIN 750 MG TAB PO SCH (16:31)
[2017-01-14 15:55] LABS: HCV RNA PCR IU/ML 19800 IU/mL (0-14)
== END 2017-01-10 16:48 | disposition home or self-care (01) | DRG 872 ==
LOC: NEPC 13:24 → NEDA 17:01 → HIMW 20:20 → N04B 01-07 09:19
PROVIDERS: ADMIT Family Medicine; ATTEND Family Medicine
PROC: 3E0F7GC Introduction of Other Therapeutic Substance into Respiratory Tract, Via Natural or Artificial Opening (ICD-10-PCS; principal; 2017-01-05)
DX: A41.9 Sepsis, unspecified organism (principal); E87.2 Acidosis; J68.0 Bronchitis and pneumonitis due to chemicals, gases, fumes and vapors; I24.8 Other forms of acute ischemic heart disease; E87.1 Hypo-osmolality and hyponatremia; R04.89 Hemorrhage from other sites in respiratory passages; K76.89 Other specified diseases of liver; E11.9 Type 2 diabetes mellitus without complications; T40.5X1A Poisoning by cocaine, accidental (unintentional), initial encounter; Z79.84 Long term (current) use of oral hypoglycemic drugs; R51 Headache; E66.9 Obesity, unspecified; F17.210 Nicotine dependence, cigarettes, uncomplicated; F14.10 Cocaine abuse, uncomplicated; F12.90 Cannabis use, unspecified, uncomplicated; Z23 Encounter for immunization; R19.7 Diarrhea, unspecified; R20.0 Anesthesia of skin; R65.20 Severe sepsis without septic shock; B19.20 Unspecified viral hepatitis C without hepatic coma; I77.6 Arteritis, unspecified; Y92.9 Unspecified place or not applicable
CPT/HCPCS: 71010; 71020; 71250; 71275; 80048; 80053; 80074; 80307; 81001; 82550; 82552; 82948; 83605; 83690; 83735; 83880; 84100; 84145; 84484; 85007; 85025; 85027; 85610; 85730; 86703; 87015; 87040; 87070; 87102; 87116; 87205; 87206; 87449; 87522; 87641; 87804; 87902; 90686; 90732; 93005; 93306; 94150; 94620; 94640; 94664; 96361; 96365; 96367; 96375; J1650; J1815; J2270; J2405; J2543; J2920; J3370; J7030; J7040; J7050; Q2038; Q9967

== ENCOUNTER 2017-01-12 23:56 | Emergency (ER) | payer OTHER ==
[~2017-01-12] VITALS: Ht 167.6 cm; Wt 95.5 kg
[~2017-01-12 23:56] MED LIST: BENZ100 PO; LEVA750T9 PO; METF500T PO; NORC5TAB PO; OMEP20TA93 PO; OXYC1TAB35 PO
[2017-01-13 00:10] VITALS: BP 138/66; PULSE 103; RESP 20; TEMP 98.6; O2SAT 99
[2017-01-13] MEDS ORDERED: SODIUM CHLORIDE 0.9% FLUSH 10 ML FLUSH IVF PRN (00:30)
[2017-01-13 00:59] LABS: AUTOMATED NEUTROPHIL # 4.1 TH/MM3 (1.8-7.7); BASOPHIL % 0.1 % (0.0-2.0); EOSINOPHIL # 0.1 TH/MM3 (0-0.4); EOSINOPHIL % 0.9 % (0.0-4.0); HEMATOCRIT 44.2 % (39.0-51.0); LYMPHOCYTE # 1.6 TH/MM3 (1.0-4.8); MEAN CELL VOLUME 83.5 FL (80.0-100.0); MEAN CORPUSCULAR HEMOGLOBIN 28.7 PG (27.0-34.0); MEAN CORPUSCULAR HGB CONC 34.3 % (32.0-36.0); MONO % 11.9 % (0.0-8.0); NEUT % 63.1 % (16.0-70.0); PLATELET COUNT 240 TH/MM3 (150-450); RED CELL DISTRIBUTION WIDTH 13.7 % (11.6-17.2); WHITE BLOOD COUNT 6.5 TH/MM3 (4.0-11.0)
[2017-01-13 01:02] LABS: HEMO FLAGS AUTO DIFF
--- NOTE | 2017-01-13 01:19 | RADRPT ---
EXAM DATE/TIME: 01/13/2017 00:57 [facility] COMPARISON: CHEST PA & LAT, January 09, 2017, 8:34. INDICATIONS : Short of breath. MEDICAL HISTORY : None. SURGICAL HISTORY : None. ENCOUNTER: Initial ACUITY: 1 day PAIN SCORE: 0/10 LOCATION: Bilateral chest FINDINGS: A single view of the chest demonstrates the lungs to be symmetrically aerated without evidence of mas s, infiltrate or effusion. The cardiomediastinal contours are unremarkable. Osseous structures are intact. CONCLUSION: No acute disease. Dimitry Patel MD on January 13, 2017 at 1:18 Board Certified Radiologist. This report was verified electronically.
[2017-01-13 01:34] LABS: BANDS 5 % (0-6); EOSINOPHILS 2 % (0-4); METAMYELOCYTES 1 % (0-1); MYELOCYTES 5 % (0-0); NEUTROPHIL # MANUAL DIFF 4.7 TH/MM3 (1.8-7.7); POLYS (SEG NEUTROPHILS) 62 % (16-70); SCAN/DIFF FINAL DIFF MANUAL; WBC DIFF SAMPLE 100
[2017-01-13 01:35] LABS: PLATELET ESTIMATE SMEAR NORMAL (NORMAL); PLATELET MORPHOLOGY NORMAL (NORMAL)
--- NOTE | 2017-01-13 01:35 | PD ---
HPI . Syncope Chief Complaint: Cold / Flu Symptoms Time Seen by Provider: 00:23 Travel History International Travel<30 days: No Contact w/Intl Traveler<30days: No Traveled to known affect area: No History of Present Illness HPI This patient was just discharged from the hospital today for pneumonia and sepsis. He was discharged on Levaquin. He states that he has been feeling weak , dizzy, short of breath and feverish since discharge. He states that he had a syncopal episode just prior to calling 911. He is complaining with chest discomfort. He rates the chest pain 9/10. PFSH Past Medical History Cancer: No Cardiovascular Problems: No Diabetes: Yes Patient Takes Glucophage: Yes Diminished Hearing: No Endocrine: Yes Gastrointestinal Disorders: Yes GERD: Yes Genitourinary: No Hepatitis: Yes (Hep C) Immune Disorder: No Musculoskeletal: Yes Neurologic: Yes (neuropathy in bilateral feet) Reproductive: No Respiratory: No Past Surgical History Other Surgery: Yes Social History Alcohol Use: No Tobacco Use: Yes (1ppd) Substance Use: Yes (iv cocaine) Allergies-Medications (Allergen,Severity, Reaction): Coded Allergies: cephalexin (Verified Allergy, Unknown, 01/13/17) Reported Meds & Prescriptions Reported Meds & Active Scripts Active [place] (Hydrocodone-Acetaminophen) 5-325 mg Tab 1 Tab PO Q6H PRN Tessalon [place] (Benzonatate) 100 Mg Cap 200 Mg PO TID PRN Reported Omeprazole 20 Mg Tab 20 Mg PO DAILY Metformin (Metformin HCl) 500 Mg Tab 500 Mg PO BIDPC Review of Systems Except as stated in HPI: all other systems reviewed are Neg General / Constitutional: Positive: Fever, Chills HENT: Positive: Lightheadedness Cardiovascular: Positive: Chest Pain or Discomfort Respiratory: Positive: Shortness of Breath Gastrointestinal: Positive: Diarrhea Neurologic: Positive: Syncope Psychiatric: Positive: Substance Abuse (the patient states that he has not used IV drugs since discharge from the hospital.) Physical Exam Narrative GENERAL: Very anxious appearing man who does not appear to be in any acute distress. SKIN: warm/dry. Normal color. Normal capillary refill. HEAD: Normocephalic. Atraumatic. EYES: Pupils equal and round. No scleral icterus. No injection or drainage. ENT: No nasal bleeding or discharge. Mucous membranes pink and moist. NECK: Trachea midline. Full range of motion without pain.. CARDIOVASCULAR: Regular rate and rhythm. Heart sounds are normal. RESPIRATORY: No accessory muscle use. Clear to auscultation. Breath sounds equal bilaterally. GASTROINTESTINAL: Abdomen soft. Nontender. Bowel sounds present. Nondistended. MUSCULOSKELETAL: No obvious deformities. NEUROLOGICAL: Awake and alert. No obvious cranial nerve deficits. Motor grossly within normal limits. Normal speech. PSYCHIATRIC: Appropriate mood and affect; insight and judgment normal. Data Data Last Documented VS Vital Signs Date Time Temp Pulse Resp B/P (MAP) Pulse Ox O2 Delivery O2 Flow Rate FiO2 01/13/17 00:13 2 Nasal Cannula 01/13/17 00:10 98.6 103 20 138/66 (90) Orders Orders Basic Metabolic Panel (Bmp) (01/13/17 00:27) Complete Blood Count With Diff (01/13/17 00:27) Chest, Single Ap (01/13/17 00:27) Sodium Chloride 0.9% Flush (Ns Flush) (01/13/17 00:30) Labs Laboratory Tests Test 01/13/17 00:38 White Blood Count 6.5 TH/MM3 Red Blood Count 5.30 MIL/MM3 Hemoglobin 15.2 GM/DL Hematocrit 44.2 % Mean Corpuscular Volume 83.5 FL Mean Corpuscular Hemoglobin 28.7 PG Mean Corpuscular Hemoglobin Concent 34.3 % Red Cell Distribution Width 13.7 % Platelet Count 240 TH/MM3 Mean Platelet Volume 9.5 FL Neutrophils (%) (Auto) 63.1 % Lymphocytes (%) (Auto) 24.0 % Monocytes (%) (Auto) 11.9 % Eosinophils (%) (Auto) 0.9 % Basophils (%) (Auto) 0.1 % Neutrophils # (Auto) 4.1 TH/MM3 Lymphocytes # (Auto) 1.6 TH/MM3 Monocytes # (Auto) 0.8 TH/MM3 Eosinophils # (Auto) 0.1 TH/MM3 Basophils # (Auto) 0.0 TH/MM3 CBC Comment AUTO DIFF Differential Total Cells Counted 100 Neutrophils % (Manual) 62 % Band Neutrophils % 5 % Lymphocytes % 14 % Monocytes % 11 % Eosinophils % 2 % Neutrophils # (Manual) 4.7 TH/MM3 Metamyelocytes 1 % Myelocytes 5 % Differential Comment FINAL DIFF MANUAL Platelet Estimate NORMAL Platelet Morphology Comment NORMAL Red Cell Morphology Comment NORMAL Blood Urea Nitrogen 14 MG/DL Creatinine 1.08 MG/DL Random Glucose 260 MG/DL Calcium Level 7.9 MG/DL Sodium Level 138 MEQ/L Potassium Level 3.2 MEQ/L Chloride Level 103 MEQ/L Carbon Dioxide Level 22.7 MEQ/L Anion Gap 12 MEQ/L Estimat Glomerular Filtration Rate 79 ML/MIN MDM Medical Decision Making Medical Screen Exam Complete: Yes Emergency Medical Condition: Yes Medical Record Reviewed: Yes (the patient was hospitalized for pneumonia and sepsis. He has a history of IV drug abuse. He was screened for hepatitis C and found to be positive. All cultures were negative including fungal, AFB and Legionella. He was discharged on Levaquin.) Differential Diagnosis Differential diagnosis of dyspnea includes but is not limited to congestive heart failure, pneumonia, wheezing, pneumothorax, pulmonary embolism Narrative Course This patient presents with what sounds like an anxiety attack. He was just in the hospital for pneumonia and sepsis. He states that he's been feeling short of breath and dizzy since discharge today. CXR>>No acute disease. CBC & BMP Diagram 01/13/17 00:38 Calcium Level 7.9 L I will give him a dose of potassium and discharge him to home. The history, exam, diagnostic testing, and current condition do not suggest any significant pathology to warrant further testing, continued ED treatment, admission, or surgical evaluation at this point. No EMC was found. The patient 's condition is stable and appropriate for discharge. Diagnosis Primary Impression: Dyspnea Qualified Codes: R06.00 - Dyspnea, unspecified Additional Impression: Hypokalemia Patient Instructions: Dyspnea (DC), General Instructions, Hypokalemia (DC) Disposition: 01 DISCHARGE HOME Condition: Stable Jo Ann Boyer MD Jan 13, 2017 01:35
[2017-01-13 02:01] LABS: BICARBONATE 22.7 MEQ/L (21.0-32.0); POTASSIUM 3.2 MEQ/L (3.5-5.1)
[2017-01-13] MEDS ORDERED: POTASSIUM CHLORIDE 20 MEQ CONTROLLED RELEASE TAB PO ONE (02:15)
== END 2017-01-13 03:16 | disposition home or self-care (01) ==
LOC: NEPE 23:56
DX: R06.00 Dyspnea, unspecified (principal); E87.6 Hypokalemia; R53.1 Weakness; R42 Dizziness and giddiness; R50.9 Fever, unspecified; E11.9 Type 2 diabetes mellitus without complications; F17.200 Nicotine dependence, unspecified, uncomplicated; Z79.84 Long term (current) use of oral hypoglycemic drugs; Z87.19 Personal history of other diseases of the digestive system; Z86.19 Personal history of other infectious and parasitic diseases; Z87.39 Personal history of other diseases of the musculoskeletal system and connective tissue; Z86.69 Personal history of other diseases of the nervous system and sense organs
CPT/HCPCS: 71010; 80048; 85007; 85027; 99284